=== PATIENT | female | born 1935 | race Caucasian/White ===

== ENCOUNTER 2019-03-29 15:37 | Inpatient (IN) | payer MEDICARE, OTHER ==
[2019-03-29] MEDS ORDERED: Lactated Ringers 1,000 ML IV SCH (16:00)
[2019-03-29] MEDS ORDERED: Acetaminophen 325 MG Tab PO ONE (16:01)
[2019-03-29] MEDS ORDERED: Piperacillin/Tazobactam 4.5 GM in Sodium Chloride 0.9% 100 ML IV ONE (16:02)
[2019-03-29] MEDS ORDERED: Ondansetron 4 MG/2 ML SDV IVPUSH ONE (16:02)
--- NOTE | 2019-03-29 16:05 | EDM.PDOC ---
ED HPI GENERAL MEDICAL PROBLEM - General Chief Complaint: Fever Stated Complaint: MEDICAL Time Seen by Provider: 03/29/19 15:55 Source of Information: Reports: Patient, Family, Provider, RN Notes Reviewed History Limitations: Reports: No Limitations - History of Present Illness INITIAL COMMENTS - FREE TEXT/NARRATIVE: 84-year-old female presents emergency department today complaint of body aches, fever and weakness, she states she started in sick yesterday has progressively gotten worse. Was initially evaluated in clinic and then sent to the emergency department for further evaluation. She does admit to being short of breath is concerned about a urinary tract infection although she diet denies any symptomology, no tick exposure she is aware of, flu shot was given this year influenza AB- in the clinic Generalized Pain Score (Numeric/FACES): 5 - Related Data Allergies Allergy/AdvReac Type Severity Reaction Status Date / Time amoxicillin [From Augmentin] Allergy Nausea Verified 03/29/19 15:53 atorvastatin [From Lipitor] Allergy Muscle Verified 03/29/19 15:53 Aches ciprofloxacin [From Cipro] Allergy Rash Verified 03/29/19 15:53 clavulanic acid Allergy Nausea Verified 03/29/19 15:53 [From Augmentin] diatrizoate sodium Allergy Anaphylactic Verified 03/29/19 15:53 Shock gabapentin Allergy Confusion Verified 03/29/19 15:53 gluten Allergy Diarrhea Verified 03/29/19 15:53 Iodinated Contrast Media Allergy Anaphylactic Verified 03/29/19 15:53 Shock meropenem Allergy Other Verified 03/29/19 15:53 metformin Allergy Confusion Verified 02/26/19 09:39 oats Allergy Diarrhea Verified 03/29/19 15:53 pravastatin Allergy Rash Verified 03/29/19 15:53 ropivacaine Allergy Other Verified 03/29/19 15:53 rosuvastatin [From Crestor] Allergy Hives Verified 03/29/19 15:53 Idzpopr-Yse-Llp Reductase Allergy Muscle Verified 03/29/19 15:53 Inhibitor Aches sulfamethoxazole Allergy Cannot Verified 03/29/19 15:53 [From Bactrim] Remember trimethoprim [From Bactrim] Allergy Cannot Verified 03/29/19 15:53 Remember wheat bran Allergy Diarrhea Verified 03/29/19 15:53 [From Senokot Wheat Bran] Home Meds: Home Meds Aspirin [Halfprin] 81 mg PO DAILY 02/22/19 [History] Cyanocobalamin (Vitamin B-12) [Vitamin B-12] 1,000 mcg PO DAILY 02/22/19 [ History] Isosorbide Mononitrate [Imdur] 30 mg PO DAILY 02/22/19 [History] Lutein 20 mg PO BID 02/22/19 [History] Metoprolol Succinate [Toprol XL] 25 mg PO DAILY 02/22/19 [History] Nitroglycerin [Nitrostat] 0.4 mg SL ASDIRECTED PRN 02/22/19 [History] Pregabalin [Lyrica] 75 mg PO DAILY 02/22/19 [History] Torsemide 10 mg PO BID 02/22/19 [History] Past Medical History Cardiovascular History: Reports: Afib, Heart Failure, Hypertension Neurological History: Reports: Neuropathy, Peripheral ED ROS GENERAL - Review of Systems Review Of Systems: See Below Constitutional: Reports: Fever, Chills, Other (Body aches) HEENT: Reports: No Symptoms Respiratory: Reports: Shortness of Breath Cardiovascular: Reports: No Symptoms GI/Abdominal: Reports: Nausea : Reports: No Symptoms Musculoskeletal: Reports: No Symptoms Skin: Reports: No Symptoms ED EXAM, SEPSIS - Physical Exam Exam: See Below Text/Narrative:: General: Female, ill-appearing but not in distress, alert and oriented x3 HEENT: head is atraumatic normocephalic, eyes pupils equal round reactive to light, sclera clear no conjunctivitis appreciated. Ears tympanic membranes clear and zarate landmarks and light reflex are present bilaterally canals are clear. Nose no septal deviation, nares are clear, no blood present. Mouth mucosa is moist and pink no erythema or exudate noted in soft palate, tongue is midline uvula is midline, dentition is intact. Neck: Supple no thyromegaly no tracheal deviation. Nodes: Cervical nodes subclavicular nodes nontender no palpable lymphadenopathy noted. Lungs: Coarse breath sounds in the bases bilaterally CV: Regular rate and rhythm S1 and S2 appreciated no murmurs rubs or gallops noted. Abdomen: Soft, nontender, no palpable masses or organomegaly appreciated, no distention no guarding bowel sounds are present, . Neuro: GCS 15, Skin: Warm and dry, intact Extremities: No lower extremity edema appreciated, Course - Vital Signs Last Recorded V/S: Last Vital Signs Temp 99.8 F 03/29/19 16:44 Pulse 133 H 03/29/19 16:16 Resp 19 03/29/19 16:20 BP 141/77 H 03/29/19 16:20 Pulse Ox 90 L 03/29/19 16:20 - Orders/Labs/Meds Orders: Active Orders 24 hr Category Date Time Status Vital Signs [RC] Q1H Care 03/29/19 15:59 Active CULTURE BLOOD [BC] Urgent Lab 03/29/19 16:00 Received CULTURE BLOOD [BC] Urgent Lab 03/29/19 16:01 Received CULTURE URINE [RM] Urgent Lab 03/29/19 16:51 Received Lactated Ringers [Ringers, Lactated] 1,000 ml Med 03/29/19 16:00 Active IV ASDIRECTED Lactated Ringers [Ringers, Lactated] 1,000 ml Med 03/29/19 17:08 Active IV BOLUS Blood Culture x2 Reflex Set [OM.PC] Urgent Oth 03/29/19 15:59 Ordered Medication Orders Lactated Ringer's (Ringers, Lactated) 1,000 mls @ 999 mls/hr IV ASDIRECTED LA Last Admin: 03/29/19 16:05 Dose: 999 mls/hr Lactated Ringer's (Ringers, Lactated) 1,000 mls @ 999 mls/hr IV BOLUS ONE Stop: 03/29/19 18:08 Last Admin: 03/29/19 17:11 Dose: 999 mls/hr Labs: Laboratory Tests 03/29/19 03/29/19 03/29/19 Range/Units 15:59 16:14 16:14 WBC 9.7 (4.5-11.0) K/uL RBC 4.58 (3.30-5.50) M/uL Hgb 14.0 (12.0-15.0) g/dL Hct 40.1 (36.0-48.0) % MCV 88 (80-98) fL MCH 31 (27-31) pg MCHC 35 (32-36) % Plt Count 78 L (150-400) K/uL Neut % (Auto) 75 H (36-66) % Lymph % (Auto) 14 L (24-44) % [place] % (Auto) 9 H (2-6) % Eos % (Auto) 2 (2-4) % Baso % (Auto) 0 (0-1) % Sodium 139 L (140-148) mmol/L Potassium 3.7 (3.6-5.2) mmol/L Chloride 105 (100-108) mmol/L Carbon Dioxide 22 (21-32) mmol/L Anion Gap 15.7 H (5.0-14.0) mmol/L BUN 19 H (7-18) mg/dL Creatinine 1.1 H (0.6-1.0) mg/dL Est Cr Clr Drug Dosing 34.05 mL/min Estimated GFR (MDRD) 48 L (>60) Glucose 123 H (74-106) mg/dL Lactic Acid 1.5 (0.4-2.0) mmol/L Calcium 8.6 (8.5-10.1) mg/dL Total Bilirubin 0.5 (0.2-1.0) mg/dL AST 21 (15-37) U/L ALT 11 L (12-78) U/L Alkaline Phosphatase 60 (46-116) U/L Lactate Dehydrogenase (82-234) U/L Troponin I (0.000-0.056) ng/mL C-Reactive Protein 8.29 H (0.0-0.3) mg/dL Total Protein 7.5 (6.4-8.2) g/dL Albumin 2.9 L (3.4-5.0) g/dL Globulin 4.6 H (2.3-3.5) g/dL Albumin/Globulin Ratio 0.6 L (1.2-2.2) Procalcitonin ng/mL Urine Color (YELLOW) Urine Appearance (CLEAR) Urine pH (5.0-8.0) Ur Specific [place] (1.008-1.030) Urine Protein (NEGATIVE) mg/dL Urine Glucose (UA) (NEGATIVE) mg/dL Urine Ketones (NEGATIVE) mg/dL Urine Occult Blood (NEGATIVE) Urine Nitrite (NEGATIVE) Urine Bilirubin (NEGATIVE) Urine Urobilinogen (0.2-1.0) EU/dL Ur Leukocyte Esterase (NEGATIVE) Urine RBC (0-5) Urine WBC (0-5) Ur Epithelial Cells Amorphous Sediment Urine Bacteria Urine Mucus 03/29/19 03/29/19 03/29/19 Range/Units 16:14 16:14 16:26 WBC (4.5-11.0) K/uL RBC (3.30-5.50) M/uL Hgb (12.0-15.0) g/dL Hct (36.0-48.0) % MCV (80-98) fL MCH (27-31) pg MCHC (32-36) % Plt Count (150-400) K/uL Neut % (Auto) (36-66) % Lymph % (Auto) (24-44) % [place] % (Auto) (2-6) % Eos % (Auto) (2-4) % Baso % (Auto) (0-1) % Sodium (140-148) mmol/L Potassium (3.6-5.2) mmol/L Chloride (100-108) mmol/L Carbon Dioxide (21-32) mmol/L Anion Gap (5.0-14.0) mmol/L BUN (7-18) mg/dL Creatinine (0.6-1.0) mg/dL Est Cr Clr Drug Dosing mL/min Estimated GFR (MDRD) (>60) Glucose (74-106) mg/dL Lactic Acid (0.4-2.0) mmol/L Calcium (8.5-10.1) mg/dL Total Bilirubin (0.2-1.0) mg/dL AST (15-37) U/L ALT (12-78) U/L Alkaline Phosphatase (46-116) U/L Lactate Dehydrogenase 162 (82-234) U/L Troponin I < 0.017 (0.000-0.056) ng/mL C-Reactive Protein (0.0-0.3) mg/dL Total Protein (6.4-8.2) g/dL Albumin (3.4-5.0) g/dL Globulin (2.3-3.5) g/dL Albumin/Globulin Ratio (1.2-2.2) Procalcitonin 20.49 H* ng/mL Urine Color Yellow (YELLOW) Urine Appearance Slightly cloudy A (CLEAR) Urine pH 8.0 (5.0-8.0) Ur Specific [place] 1.020 (1.008-1.030) Urine Protein 100 H (NEGATIVE) mg/dL Urine Glucose (UA) Negative (NEGATIVE) mg/dL Urine Ketones Trace H (NEGATIVE) mg/dL Urine Occult Blood Moderate H (NEGATIVE) Urine Nitrite Negative (NEGATIVE) Urine Bilirubin Negative (NEGATIVE) Urine Urobilinogen 0.2 (0.2-1.0) EU/dL Ur Leukocyte Esterase Small H (NEGATIVE) Urine RBC 10-20 H (0-5) Urine WBC 10-20 H (0-5) Ur Epithelial Cells Many Amorphous Sediment Many Urine Bacteria Not seen Urine Mucus Not seen Meds: Medications Generic Name Dose Route Start Last Admin Trade Name Freq PRN Reason Stop Dose Admin Lactated Ringer's 1,000 mls @ 999 mls/hr 03/29/19 16:00 03/29/19 16:05 Ringers, Lactated IV 999 mls/hr ASDIRECTED LA Administration Lactated Ringer's 1,000 mls @ 999 mls/hr 03/29/19 17:08 03/29/19 17:11 Ringers, Lactated IV 03/29/19 18:08 999 mls/hr BOLUS ONE Administration Discontinued Medications Generic Name Dose Route Start Last Admin Trade Name Freq PRN Reason Stop Dose Admin Acetaminophen 650 mg 03/29/19 16:01 03/29/19 16:10 Tylenol PO 03/29/19 16:02 650 mg NOW ONE Administration Piperacillin Sod/Tazobactam 100 mls @ 100 mls/hr 03/29/19 16:02 03/29/19 16: 14 Sod 4.5 gm/ Sodium Chloride IV 03/29/19 17:01 100 mls/hr ONETIME ONE Administration Ondansetron HCl 4 mg 03/29/19 16:02 03/29/19 16:08 Zofran IVPUSH 03/29/19 16:03 4 mg ONETIME ONE Administration Departure - Departure Time of Disposition: 17:18 Disposition: Admitted As Inpatient 68 Condition: Fair Clinical Impression: Sepsis Qualifiers: Sepsis type: sepsis due to unspecified organism Sepsis acute organ dysfunction status: with acute organ dysfunction Severe sepsis acute organ dysfunction type : acute renal failure Acute renal failure type: unspecified Severe sepsis shock status: without septic shock Qualified Code(s): A41.9 - Sepsis, unspecified organism - Discharge Information Referrals: Aliza Fowler MD [Primary Care Provider] - Forms: ED Department Discharge - My Orders Last 24 Hours: My Active Orders 03/29/19 15:59 Vital Signs [RC] Q1H Blood Culture x2 Reflex Set [OM.PC] Urgent 03/29/19 16:00 CULTURE BLOOD [BC] Urgent Lactated Ringers [Ringers, Lactated] 1,000 ml IV ASDIRECTED 03/29/19 16:01 CULTURE BLOOD [BC] Urgent 03/29/19 16:51 CULTURE URINE [RM] Urgent 03/29/19 17:08 Lactated Ringers [Ringers, Lactated] 1,000 ml IV BOLUS - Assessment/Plan Last 24 Hours: My Active Orders 03/29/19 15:59 Vital Signs [RC] Q1H Blood Culture x2 Reflex Set [OM.PC] Urgent 03/29/19 16:00 CULTURE BLOOD [BC] Urgent Lactated Ringers [Ringers, Lactated] 1,000 ml IV ASDIRECTED 03/29/19 16:01 CULTURE BLOOD [BC] Urgent 03/29/19 16:51 CULTURE URINE [RM] Urgent 03/29/19 17:08 Lactated Ringers [Ringers, Lactated] 1,000 ml IV BOLUS Plan: Assessment Acuity = acute Site and laterality = early sepsis Etiology = unknown Manifestations = fever, tachycardia Location of injury = Home Lab values = platelets low at 78 consistent thrombocytopenia creatinine elevated 1.1 consistent acute renal failure stage G IIIa lactic acid normal 1.5 troponin was negative CRP elevated 8.29 and pro-calcitonin limited 20.49 urinalysis reveals RBCs 10-20 consistent hematuria WBCs 1020 consistent pyuria however no bacteria noted cultures pending, influenza A and B were negative, chest x-ray shows no acute process, blood cultures are pending EKG from clinic demonstrates sinus tachycardia Plan Called discussed case with hospitalist on-call at 1700 he kindly agreed to come and evaluate the patient emergency department for admission This note was dictated using [employer] voice recognition software please call with any questions on syntax or grammar.
--- NOTE | 2019-03-29 16:27 | CRLCR ---
Indication: Fever. Technique: A single AP portable view of the chest was obtained. Comparison: None Findings: Heart is normal in size. Cardiac event monitor is identified overlying the left chest. No infiltrate, pleural effusion, or pneumothorax is identified. Impression: No acute cardiopulmonary process. Dictated by Nicolasa Chang MD @ Mar 29 2019 4:25PM Signed by Dr. Nicolasa Chang @ Mar 29 2019 4:25PM
[2019-03-29] MEDS ORDERED: Lactated Ringers 1,000 ML IV ONE (17:08)
--- NOTE | 2019-03-29 18:05 | PCM.HP.2 ---
H&P History of Present Illness - General Date of Service: 03/29/19 Admit Problem/Dx: Admission Diagnosis/Problem Admission Diagnosis/Problem Right lower lobe pneumonia Source of Information: Patient, Provider History Limitations: Reports: No Limitations - History of Present Illness Initial Comments - Free Text/Narative: CC: I'm freezing HPI: Jagjit presents to the emergency room today with shaking chills, myalgias, headache, fatigue and shortness of breath. She was in her usual state of health until Friday morning. Shortly after waking up she noticed that she had shaking chills and was short of breath. She had a mild cough. She's had difficulty with sinus congestion for a couple of weeks. She's not aware of any fevers. She does endorse mild achy pain in the right lower portion of her chest. This gets worse with coughing and bending. Tylenol has helped the pain some. Pain is a little bit worse today than yesterday. Headache is mild generalized. She's had some nausea. She had 2 episodes of diarrhea this morning. She does report some mild generalized abdominal pain. No obvious sick contacts. She reports that her energy at baseline is not very good but it's been worse. Appetite has not been good the past couple of days. She has noticed some palpitations with her atrial fibrillation. Workup in the emergency room revealed rapid atrial fibrillation on the patient monitor. Patient is mildly hypoxic. Laboratory studies fairly unremarkable other than a CRP of more than 8 and a pro-calcitonin of more than 20. Chest x- ray did not show obvious infiltrate but exam consistent with pneumonia in the right lower lung. She'll be admitted for management of right lower lobe pneumonia with sepsis and rapid atrial fibrillation. Generalized Pain Score (Numeric/FACES): 5 - Related Data Allergies/Adverse Reactions: Allergies Allergy/AdvReac Type Severity Reaction Status Date / Time amoxicillin [From Augmentin] Allergy Nausea Verified 03/29/19 15:53 atorvastatin [From Lipitor] Allergy Muscle Verified 03/29/19 15:53 Aches ciprofloxacin [From Cipro] Allergy Rash Verified 03/29/19 15:53 clavulanic acid Allergy Nausea Verified 03/29/19 15:53 [From Augmentin] diatrizoate sodium Allergy Anaphylactic Verified 03/29/19 15:53 Shock gabapentin Allergy Confusion Verified 03/29/19 15:53 gluten Allergy Diarrhea Verified 03/29/19 15:53 Iodinated Contrast Media Allergy Anaphylactic Verified 03/29/19 15:53 Shock meropenem Allergy Other Verified 03/29/19 15:53 metformin Allergy Confusion Verified 02/26/19 09:39 oats Allergy Diarrhea Verified 03/29/19 15:53 pravastatin Allergy Rash Verified 03/29/19 15:53 ropivacaine Allergy Other Verified 03/29/19 15:53 rosuvastatin [From Crestor] Allergy Hives Verified 03/29/19 15:53 Tcxvyli-Pea-Hic Reductase Allergy Muscle Verified 03/29/19 15:53 Inhibitor Aches sulfamethoxazole Allergy Cannot Verified 03/29/19 15:53 [From Bactrim] Remember trimethoprim [From Bactrim] Allergy Cannot Verified 03/29/19 15:53 Remember wheat bran Allergy Diarrhea Verified 03/29/19 15:53 [From Senokot Wheat Bran] Home Medications: Home Meds Aspirin [Halfprin] 81 mg PO DAILY 02/22/19 [History] Cyanocobalamin (Vitamin B-12) [Vitamin B-12] 1,000 mcg PO DAILY 02/22/19 [ History] Isosorbide Mononitrate [Imdur] 30 mg PO DAILY 02/22/19 [History] Lutein 20 mg PO BID 02/22/19 [History] Metoprolol Succinate [Toprol XL] 25 mg PO DAILY 02/22/19 [History] Nitroglycerin [Nitrostat] 0.4 mg SL ASDIRECTED PRN 02/22/19 [History] Pregabalin [Lyrica] 75 mg PO DAILY 02/22/19 [History] Torsemide 10 mg PO BID 02/22/19 [History] Past Medical History HEENT History: Reports: Impaired Vision Cardiovascular History: Reports: Afib, Heart Failure, Hypertension Respiratory History: Reports: Sleep Apnea Other Respiratory History: CPAP Gastrointestinal History: Reports: Other (See Below) Genitourinary History: Reports: UTI, Recurrent 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: Musculoskeletal History: Reports: Back Pain, Chronic Neurological History: Reports: Neuropathy, Peripheral Hematologic History: Reports: B12 Deficiency Oncologic (Cancer) History: Reports: Other (See Below) Other Oncologic History: 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 - Past Surgical History Head Surgeries/Procedures: Reports: None HEENT Surgical History: Reports: Adenoidectomy, Cataract Surgery, LASIK, Tonsillectomy Respiratory Surgical History: Reports: None GI Surgical History: Reports: Appendectomy, Cholecystectomy, Colonoscopy, Other (See Below) Female Surgical History: Reports: Hysterectomy Musculoskeletal Surgical History: Reports: Shoulder Surgery Other Musculoskeletal Surgeries/Procedures:: left Oncologic Surgical History: Reports: None Dermatological Surgical History: Reports: None Social & Family History - Family History Cardiac: Reports: CAD - Tobacco Use Smoking Status *Q: Never Smoker Second Hand Smoke Exposure: No - Caffeine Use Caffeine Use: Reports: Tea - Alcohol Use Alcohol Use History: No - Recreational Drug Use Recreational Drug Use: No H&P Review of Systems - Review of Systems: Review Of Systems: See Below Free Text/Narrative: A complete 12 point review of systems was obtained. Pertinent positives and negatives are noted in the history of present illness. All other systems were reviewed and were negative except as noted. Exam - Exam Exam: See Below - Vital Signs Vital Signs: Last Vital Signs Temp 36.4 C 03/29/19 17:54 Pulse 125 H 03/29/19 17:54 Resp 17 03/29/19 17:54 BP 129/72 03/29/19 17:54 Pulse Ox 93 L 03/29/19 17:54 Weight: 72.575 kg - Exam Quality Assessment: No: Supplemental Oxygen General: Alert, Oriented, Cooperative. No: Mild Distress HEENT: Conjunctiva Clear. No: Mucosa Moist & [place] (dry), Scleral Icterus Neck: Supple, Trachea Midline. No: Lymphadenopathy, Thyromegaly Lungs: Normal Respiratory Effort, Decreased Breath Sounds (right lung base), Crackles (right lung base) Cardiovascular: Irregular Rhythm, Tachycardia. No: Systolic Murmur GI/Abdominal Exam: Normal Bowel Sounds, Soft, No Distention, Tender Extremities: No Pedal Edema. No: Increased Warmth Peripheral Pulses: 1+: Dorsalis Pedis (L), Dorsalis Pedis (R) Skin: Warm, Dry Neuro Extensive - Mental Status: Alert, Oriented x3, Nl Response to Commands Neuro Extensive - Motor, Sensory, Reflexes: No: Dysarthria, Abnormal Motor Psychiatric: Alert, Normal Affect - Patient Data Lab Results Last 24 hrs: Laboratory Results - last 24 hr 03/29/19 03/29/19 03/29/19 Range/Units 15:59 16:14 16:14 WBC 9.7 (4.5-11.0) K/uL RBC 4.58 (3.30-5.50) M/uL Hgb 14.0 (12.0-15.0) g/dL Hct 40.1 (36.0-48.0) % MCV 88 (80-98) fL MCH 31 (27-31) pg MCHC 35 (32-36) % Plt Count 78 L (150-400) K/uL Neut % (Auto) 75 H (36-66) % Lymph % (Auto) 14 L (24-44) % [place] % (Auto) 9 H (2-6) % Eos % (Auto) 2 (2-4) % Baso % (Auto) 0 (0-1) % Sodium 139 L (140-148) mmol/L Potassium 3.7 (3.6-5.2) mmol/L Chloride 105 (100-108) mmol/L Carbon Dioxide 22 (21-32) mmol/L Anion Gap 15.7 H (5.0-14.0) mmol/L BUN 19 H (7-18) mg/dL Creatinine 1.1 H (0.6-1.0) mg/dL Est Cr Clr Drug Dosing 34.05 mL/min Estimated GFR (MDRD) 48 L (>60) Glucose 123 H (74-106) mg/dL Lactic Acid 1.5 (0.4-2.0) mmol/L Calcium 8.6 (8.5-10.1) mg/dL Total Bilirubin 0.5 (0.2-1.0) mg/dL AST 21 (15-37) U/L ALT 11 L (12-78) U/L Alkaline Phosphatase 60 (46-116) U/L Lactate Dehydrogenase (82-234) U/L Troponin I (0.000-0.056) ng/mL C-Reactive Protein 8.29 H (0.0-0.3) mg/dL Total Protein 7.5 (6.4-8.2) g/dL Albumin 2.9 L (3.4-5.0) g/dL Globulin 4.6 H (2.3-3.5) g/dL Albumin/Globulin Ratio 0.6 L (1.2-2.2) Procalcitonin ng/mL Urine Color (YELLOW) Urine Appearance (CLEAR) Urine pH (5.0-8.0) Ur Specific [place] (1.008-1.030) Urine Protein (NEGATIVE) mg/dL Urine Glucose (UA) (NEGATIVE) mg/dL Urine Ketones (NEGATIVE) mg/dL Urine Occult Blood (NEGATIVE) Urine Nitrite (NEGATIVE) Urine Bilirubin (NEGATIVE) Urine Urobilinogen (0.2-1.0) EU/dL Ur Leukocyte Esterase (NEGATIVE) Urine RBC (0-5) Urine WBC (0-5) Ur Epithelial Cells Amorphous Sediment Urine Bacteria Urine Mucus 03/29/19 03/29/19 03/29/19 Range/Units 16:14 16:14 16:26 WBC (4.5-11.0) K/uL RBC (3.30-5.50) M/uL Hgb (12.0-15.0) g/dL Hct (36.0-48.0) % MCV (80-98) fL MCH (27-31) pg MCHC (32-36) % Plt Count (150-400) K/uL Neut % (Auto) (36-66) % Lymph % (Auto) (24-44) % [place] % (Auto) (2-6) % Eos % (Auto) (2-4) % Baso % (Auto) (0-1) % Sodium (140-148) mmol/L Potassium (3.6-5.2) mmol/L Chloride (100-108) mmol/L Carbon Dioxide (21-32) mmol/L Anion Gap (5.0-14.0) mmol/L BUN (7-18) mg/dL Creatinine (0.6-1.0) mg/dL Est Cr Clr Drug Dosing mL/min Estimated GFR (MDRD) (>60) Glucose (74-106) mg/dL Lactic Acid (0.4-2.0) mmol/L Calcium (8.5-10.1) mg/dL Total Bilirubin (0.2-1.0) mg/dL AST (15-37) U/L ALT (12-78) U/L Alkaline Phosphatase (46-116) U/L Lactate Dehydrogenase 162 (82-234) U/L Troponin I < 0.017 (0.000-0.056) ng/mL C-Reactive Protein (0.0-0.3) mg/dL Total Protein (6.4-8.2) g/dL Albumin (3.4-5.0) g/dL Globulin (2.3-3.5) g/dL Albumin/Globulin Ratio (1.2-2.2) Procalcitonin 20.49 H* ng/mL Urine Color Yellow (YELLOW) Urine Appearance Slightly cloudy A (CLEAR) Urine pH 8.0 (5.0-8.0) Ur Specific [place] 1.020 (1.008-1.030) Urine Protein 100 H (NEGATIVE) mg/dL Urine Glucose (UA) Negative (NEGATIVE) mg/dL Urine Ketones Trace H (NEGATIVE) mg/dL Urine Occult Blood Moderate H (NEGATIVE) Urine Nitrite Negative (NEGATIVE) Urine Bilirubin Negative (NEGATIVE) Urine Urobilinogen 0.2 (0.2-1.0) EU/dL Ur Leukocyte Esterase Small H (NEGATIVE) Urine RBC 10-20 H (0-5) Urine WBC 10-20 H (0-5) Ur Epithelial Cells Many Amorphous Sediment Many Urine Bacteria Not seen Urine Mucus Not seen Result Diagrams: 03/29/19 15:59 03/29/19 16:14 Imaging Impressions Last 24 hrs: CXR - images personally reviewed - lungs are clear with no mass, infiltrate or effusion. There is a loop recorder present. Heart size is normal. EKG INTERPRETATION EKG Date: 03/29/19 Rhythm: Other (sinus tachycardia) Rate (Beats/Min): 137 [place]: LAD-Left [place] Deviation P-Wave: Present QRS: Normal ST-T: Depressed Comparison: Change From Previous EKG *Q Meaningful Use (ADM) - VTE Risk Assess *Q Each Risk Factor Represents 1 Point: Obesity ( BMI > 25 kg/m2), Sepsis, Serious lung disease including pneumonia Total Score 1 Point Risk Factors: 3 Each Risk Factor Represents 2 Points: Malignancy (present or previous) Total Score 2 Point Risk Factors: 2 Each Risk Factor Represents 3 Points: Age 75 Years or Greater Total Score 3 Point Risk Factors: 3 Each Risk Factor Represents 5 Points: None Total Score 5 Point Risk Factors: 0 Venous Thromboembolism Risk Factor Score *Q: 8 - Problem List (1) Right lower lobe pneumonia SNOMED Code(s): 596902218 ICD Code: J18.1 - LOBAR PNEUMONIA, UNSPECIFIED ORGANISM Status: Acute Current Visit: Yes Qualifiers: Pneumonia type: due to unspecified organism Qualified Code(s): J18.1 - Lobar pneumonia, unspecified organism (2) Sepsis SNOMED Code(s): 65775221 ICD Code: A41.9 - SEPSIS, UNSPECIFIED ORGANISM Status: Acute Current Visit: Yes Qualifiers: Sepsis type: sepsis due to unspecified organism Sepsis acute organ dysfunction status: with acute organ dysfunction Severe sepsis acute organ dysfunction type: acute respiratory failure Acute respiratory failure type: with hypoxia Severe sepsis shock status: without septic shock Qualified Code (s): A41.9 - Sepsis, unspecified organism; R65.20 - Severe sepsis without septic shock; J96.01 - Acute respiratory failure with hypoxia (3) Atrial fibrillation with rapid ventricular response SNOMED Code(s): 635823691982873 ICD Code: I48.91 - UNSPECIFIED ATRIAL FIBRILLATION Status: Acute Current Visit: Yes (4) CKD (chronic kidney disease), stage III SNOMED Code(s): 561838897 ICD Code: N18.3 - CHRONIC KIDNEY DISEASE, STAGE 3 (MODERATE) Status: Chronic Current Visit: Yes Problem List Initiated/Reviewed/Updated: Yes Orders Last 24hrs: Active Orders 24 hr Category Date Time Status Patient Status Manage Transfer [TRANSFER] Routine ADT 03/29/19 17:50 Ordered Vital Signs [RC] Q1H Care 03/29/19 15:59 Active CULTURE BLOOD [BC] Urgent Lab 03/29/19 16:00 Received CULTURE BLOOD [BC] Urgent Lab 03/29/19 16:01 Received CULTURE URINE [RM] Urgent Lab 03/29/19 16:51 Received Lactated Ringers [Ringers, Lactated] 1,000 ml Med 03/29/19 16:00 Active IV ASDIRECTED Lactated Ringers [Ringers, Lactated] 1,000 ml Med 03/29/19 17:08 Active IV BOLUS Blood Culture x2 Reflex Set [OM.PC] Urgent Oth 03/29/19 15:59 Ordered Resuscitation Status Routine Resus Stat 03/29/19 17:54 Ordered Medication Orders Lactated Ringer's (Ringers, Lactated) 1,000 mls @ 999 mls/hr IV ASDIRECTED LA Last Admin: 03/29/19 16:05 Dose: 999 mls/hr Lactated Ringer's (Ringers, Lactated) 1,000 mls @ 999 mls/hr IV BOLUS ONE Stop: 03/29/19 18:08 Last Admin: 03/29/19 17:11 Dose: 999 mls/hr Assessment/Plan Comment:: ASSESSMENT AND PLAN - Right lower lobe pneumonia with sepsis - Dictated by hypoxic respiratory failure. Symptoms with fatigue, shortness of breath and cough as well as fever. Cultures have been obtained. She did receive a dose of Pip/Tazo in the emergency room. She is very weak and hypoxic and not safe for outpatient management. -Antibiotic coverage with ceftriaxone and azithromycin -Supplement oxygen as needed -Symptomatically management of cough -Symptomatic management of right lower chest pain -Nebulizers as needed -Follow-up cultures Atrial fibrillation with rapid ventricular response - history of paroxysmal atrial fibrillation. Not on long-term anticoagulation. I suspect the pulmonary infection as the cause for the RVR. -Additional fluids to manage sepsis -Continue beta jennifer -Consider additional 25 mg dose of short-acting metoprolol if rapid overnight Stage III chronic kidney disease - She will need close monitoring with sepsis and pneumonia. Maintenance issues - - DVT prophylaxis - enoxaparin - GI prophylaxis - not indicated - Nutrition - consistent carbohydrate diet - Rainey catheter - not indicated CODE STATUS - full code Admission justification - This patient will be admitted for inpatient services and is medically appropriate meeting medical necessity for inpatient admission as outlined in my documentation. I reasonably expect the patient will require inpatient services that span a period time over 2 midnights. I reasonably expect this patient to be discharged or transferred within 96 hours [facility]. Disposition - I would anticipate discharge home after the hospital stay Primary care physician - Dr. Malcolm Walker M.D. - Mortality Measure Prognosis:: Good
[2019-03-29] MEDS ORDERED: Sodium Chloride 0.9% 500 ML IV SCH (18:15)
[2019-03-29] MEDS ORDERED: Ondansetron 4 MG Tab.DIS PO PRN (18:22)
[2019-03-29] MEDS ORDERED: Melatonin 3 MG Tab PO PRN (18:22)
[2019-03-29] MEDS ORDERED: Azithromycin 500 MG in Sodium Chloride 0.9% 250 ML IV ONE (18:22)
[2019-03-29] MEDS ORDERED: Ondansetron 4 MG/2 ML SDV IV PRN (18:22)
[2019-03-29] MEDS ORDERED: Benzonatate 100 MG Cap PO PRN (18:22)
[2019-03-29] MEDS ORDERED: Albuterol 0.083% 2.5 MG/3 ML Neb Soln NEB PRN (18:22)
[2019-03-29] MEDS ORDERED: Magnesium Hydroxide 400 MG/5 ML Susp 30 ML Cup PO PRN (18:22)
[2019-03-29] MEDS ORDERED: guaiFENesin/Dextromethorphan 100-10 MG/5 ML Soln 10 ML Cup PO PRN (18:22)
[2019-03-29] MEDS: cefTRIAXone 2 GM in Sodium Chloride 0.9% 50 ML IV SCH (21:15)
[2019-03-29] MEDS: Lactobacillus Rhamnosus GG (Probiotic) Cap PO SCH (21:19)
[2019-03-29] MEDS: NS + KCl 20mEq/L 1,000 ML IV SCH (21:48)
[2019-03-30] MEDS: NS + KCl 20mEq/L 1,000 ML IV SCH (05:09)
[2019-03-30] MEDS: Pregabalin 75 MG Cap PO SCH (09:14)
[2019-03-30] MEDS: Lactobacillus Rhamnosus GG (Probiotic) Cap PO SCH ×2 (09:19→20:00)
[2019-03-30] MEDS: Cyanocobalamin (Vitamin B12) 1,000 MCG Tab PO SCH (09:19)
[2019-03-30] MEDS: Aspirin 81 MG Tab.EC PO SCH (09:19)
[2019-03-30] MEDS: Enoxaparin 40 MG/0.4 ML Syringe SUBCUT SCH (09:20)
[2019-03-30] MEDS: LUTEIN 20 MG PO SCH ×2 (09:24→20:09)
[2019-03-30] MEDS: Metoprolol Succinate 25 MG Tab.ER PO SCH (09:27)
[2019-03-30] MEDS ORDERED: diphenhydrAMINE 25 MG Cap PO PRN (10:45)
[2019-03-30] MEDS ORDERED: diphenhydrAMINE 50 MG/ML SDV IVPUSH PRN (10:45)
--- NOTE | 2019-03-30 10:50 | PCM.PN ---
- General Info Date of Service: 03/30/19 Subjective Update: No acute events overnight. Patient is no longer hypoxic. Still feels short of breath and weak but a little better today. Not much in the way of a cough. No appetite. She was able to walk down the [place]aga and back with physical therapy this morning. Low-grade fevers overnight. Cultures pending but no growth so far. She converted to normal sinus rhythm around 3 AM and has remained in sinus rhythm since that time. Functional Status: Reports: Pain Controlled, Tolerating Diet - Review of Systems General: Reports: Weakness. Denies: Fever Pulmonary: Reports: Shortness of Breath - Patient Data Vitals - Most Recent: Last Vital Signs Temp 37.5 C 03/30/19 08:03 Pulse 70 03/30/19 09:27 Resp 16 03/30/19 08:03 BP 108/46 L 03/30/19 09:27 Pulse Ox 95 03/30/19 08:03 Weight - Most Recent: 71.214 kg I&O - Last 24 Hours: Intake & Output 03/29/19 03/30/19 03/30/19 22:59 06:59 14:59 Intake Total 850 1207 240 Output Total 150 Balance 850 1207 90 Lab Results Last 24 Hours: Laboratory Results - last 24 hr 03/29/19 03/29/19 03/29/19 Range/Units 15:59 16:14 16:14 WBC 9.7 (4.5-11.0) K/uL RBC 4.58 (3.30-5.50) M/uL Hgb 14.0 (12.0-15.0) g/dL Hct 40.1 (36.0-48.0) % MCV 88 (80-98) fL MCH 31 (27-31) pg MCHC 35 (32-36) % Plt Count 78 L (150-400) K/uL Neut % (Auto) 75 H (36-66) % Lymph % (Auto) 14 L (24-44) % [place] % (Auto) 9 H (2-6) % Eos % (Auto) 2 (2-4) % Baso % (Auto) 0 (0-1) % Sodium 139 L (140-148) mmol/L Potassium 3.7 (3.6-5.2) mmol/L Chloride 105 (100-108) mmol/L Carbon Dioxide 22 (21-32) mmol/L Anion Gap 15.7 H (5.0-14.0) mmol/L BUN 19 H (7-18) mg/dL Creatinine 1.1 H (0.6-1.0) mg/dL Est Cr Clr Drug Dosing 34.05 mL/min Estimated GFR (MDRD) 48 L (>60) Glucose 123 H (74-106) mg/dL Lactic Acid 1.5 (0.4-2.0) mmol/L Calcium 8.6 (8.5-10.1) mg/dL Magnesium (1.8-2.4) mg/dL Total Bilirubin 0.5 (0.2-1.0) mg/dL AST 21 (15-37) U/L ALT 11 L (12-78) U/L Alkaline Phosphatase 60 (46-116) U/L Lactate Dehydrogenase (82-234) U/L Troponin I (0.000-0.056) ng/mL C-Reactive Protein 8.29 H (0.0-0.3) mg/dL Total Protein 7.5 (6.4-8.2) g/dL Albumin 2.9 L (3.4-5.0) g/dL Globulin 4.6 H (2.3-3.5) g/dL Albumin/Globulin Ratio 0.6 L (1.2-2.2) Procalcitonin ng/mL Urine Color (YELLOW) Urine Appearance (CLEAR) Urine pH (5.0-8.0) Ur Specific [place] (1.008-1.030) Urine Protein (NEGATIVE) mg/dL Urine Glucose (UA) (NEGATIVE) mg/dL Urine Ketones (NEGATIVE) mg/dL Urine Occult Blood (NEGATIVE) Urine Nitrite (NEGATIVE) Urine Bilirubin (NEGATIVE) Urine Urobilinogen (0.2-1.0) EU/dL Ur Leukocyte Esterase (NEGATIVE) Urine RBC (0-5) Urine WBC (0-5) Ur Epithelial Cells Amorphous Sediment Urine Bacteria Urine Mucus 03/29/19 03/29/19 03/29/19 Range/Units 16:14 16:14 16:26 WBC (4.5-11.0) K/uL RBC (3.30-5.50) M/uL Hgb (12.0-15.0) g/dL Hct (36.0-48.0) % MCV (80-98) fL MCH (27-31) pg MCHC (32-36) % Plt Count (150-400) K/uL Neut % (Auto) (36-66) % Lymph % (Auto) (24-44) % [place] % (Auto) (2-6) % Eos % (Auto) (2-4) % Baso % (Auto) (0-1) % Sodium (140-148) mmol/L Potassium (3.6-5.2) mmol/L Chloride (100-108) mmol/L Carbon Dioxide (21-32) mmol/L Anion Gap (5.0-14.0) mmol/L BUN (7-18) mg/dL Creatinine (0.6-1.0) mg/dL Est Cr Clr Drug Dosing mL/min Estimated GFR (MDRD) (>60) Glucose (74-106) mg/dL Lactic Acid (0.4-2.0) mmol/L Calcium (8.5-10.1) mg/dL Magnesium (1.8-2.4) mg/dL Total Bilirubin (0.2-1.0) mg/dL AST (15-37) U/L ALT (12-78) U/L Alkaline Phosphatase (46-116) U/L Lactate Dehydrogenase 162 (82-234) U/L Troponin I < 0.017 (0.000-0.056) ng/mL C-Reactive Protein (0.0-0.3) mg/dL Total Protein (6.4-8.2) g/dL Albumin (3.4-5.0) g/dL Globulin (2.3-3.5) g/dL Albumin/Globulin Ratio (1.2-2.2) Procalcitonin 20.49 H* ng/mL Urine Color Yellow (YELLOW) Urine Appearance Slightly cloudy A (CLEAR) Urine pH 8.0 (5.0-8.0) Ur Specific [place] 1.020 (1.008-1.030) Urine Protein 100 H (NEGATIVE) mg/dL Urine Glucose (UA) Negative (NEGATIVE) mg/dL Urine Ketones Trace H (NEGATIVE) mg/dL Urine Occult Blood Moderate H (NEGATIVE) Urine Nitrite Negative (NEGATIVE) Urine Bilirubin Negative (NEGATIVE) Urine Urobilinogen 0.2 (0.2-1.0) EU/dL Ur Leukocyte Esterase Small H (NEGATIVE) Urine RBC 10-20 H (0-5) Urine WBC 10-20 H (0-5) Ur Epithelial Cells Many Amorphous Sediment Many Urine Bacteria Not seen Urine Mucus Not seen 03/30/19 03/30/19 Range/Units 05:40 05:40 WBC 7.7 (4.5-11.0) K/uL RBC 3.83 (3.30-5.50) M/uL Hgb 11.2 L D (12.0-15.0) g/dL Hct 35.0 L (36.0-48.0) % MCV 91 (80-98) fL MCH 29 (27-31) pg MCHC 32 (32-36) % Plt Count 145 L (150-400) K/uL Neut % (Auto) (36-66) % Lymph % (Auto) (24-44) % [place] % (Auto) (2-6) % Eos % (Auto) (2-4) % Baso % (Auto) (0-1) % Sodium 141 (140-148) mmol/L Potassium 4.1 (3.6-5.2) mmol/L Chloride 109 H (100-108) mmol/L Carbon Dioxide 23 (21-32) mmol/L Anion Gap 13.1 (5.0-14.0) mmol/L BUN 13 (7-18) mg/dL Creatinine 1.0 (0.6-1.0) mg/dL Est Cr Clr Drug Dosing 37.45 mL/min Estimated GFR (MDRD) 53 L (>60) Glucose 136 H (74-106) mg/dL Lactic Acid (0.4-2.0) mmol/L Calcium 8.1 L (8.5-10.1) mg/dL Magnesium 1.9 (1.8-2.4) mg/dL Total Bilirubin (0.2-1.0) mg/dL AST (15-37) U/L ALT (12-78) U/L Alkaline Phosphatase (46-116) U/L Lactate Dehydrogenase (82-234) U/L Troponin I (0.000-0.056) ng/mL C-Reactive Protein (0.0-0.3) mg/dL Total Protein (6.4-8.2) g/dL Albumin (3.4-5.0) g/dL Globulin (2.3-3.5) g/dL Albumin/Globulin Ratio (1.2-2.2) Procalcitonin ng/mL Urine Color (YELLOW) Urine Appearance (CLEAR) Urine pH (5.0-8.0) Ur Specific [place] (1.008-1.030) Urine Protein (NEGATIVE) mg/dL Urine Glucose (UA) (NEGATIVE) mg/dL Urine Ketones (NEGATIVE) mg/dL Urine Occult Blood (NEGATIVE) Urine Nitrite (NEGATIVE) Urine Bilirubin (NEGATIVE) Urine Urobilinogen (0.2-1.0) EU/dL Ur Leukocyte Esterase (NEGATIVE) Urine RBC (0-5) Urine WBC (0-5) Ur Epithelial Cells Amorphous Sediment Urine Bacteria Urine Mucus Med Orders - Current: Current Medications Acetaminophen (Tylenol) 650 mg PO Q4H PRN PRN Reason: Pain (Mild 1-3)/fever Albuterol (Proventil Neb Soln) 2.5 mg NEB Q4H PRN PRN Reason: Shortness Of Breath/wheezing Aspirin (Halfprin) 81 mg PO DAILY [facility] Last Admin: 03/30/19 09:19 Dose: 81 mg Azithromycin (Zithromax) 500 mg PO Q24H [facility] Benzonatate (Tessalon Perles) 100 mg PO TID PRN PRN Reason: Cough Cyanocobalamin (Vitamin B12) 1,000 mcg PO DAILY [facility] Last Admin: 03/30/19 09:19 Dose: 1,000 mcg Enoxaparin Sodium (Lovenox) 40 mg SUBCUT DAILY [facility] Last Admin: 03/30/19 09:20 Dose: 40 mg Guaifenesin/Dextromethorphan (Robitussin Dm) 10 ml PO Q4H PRN PRN Reason: Cough Ceftriaxone Sodium 2 gm/ (Sodium Chloride) 50 mls @ 100 mls/hr IV Q24H [facility] Last Admin: 03/29/19 21:15 Dose: 100 mls/hr Lactobacillus Rhamnosus (Culturelle) 1 cap PO BID [facility] Last Admin: 03/30/19 09:19 Dose: 1 cap Magnesium Hydroxide (Milk Of Magnesia) 30 ml PO Q12H PRN PRN Reason: Constipation Melatonin (Melatonin) 9 mg PO BEDTIME PRN PRN Reason: Sleep Metoprolol Succinate (Toprol Xl) 25 mg PO DAILY [facility] Last Admin: 03/30/19 09:27 Dose: 25 mg Lutein 20 Mg Ptom* (*) 20 mg PO BID [facility] Last Admin: 03/30/19 09:24 Dose: Not Given Ondansetron HCl (Zofran Odt) 4 mg PO Q6H PRN PRN Reason: Nausea able to take PO Last Admin: 03/29/19 21:58 Dose: 4 mg Ondansetron HCl (Zofran) 4 mg IV Q6H PRN PRN Reason: Nausea/Vomiting Pregabalin (Lyrica) 75 mg PO DAILY [facility] Last Admin: 03/30/19 09:14 Dose: 75 mg Senna/Docusate Sodium (Senna Plus) 1 tab PO BID PRN PRN Reason: Constipation Discontinued Medications Acetaminophen (Tylenol) 650 mg PO NOW ONE Stop: 03/29/19 16:02 Last Admin: 03/29/19 16:10 Dose: 650 mg Lactated Ringer's (Ringers, Lactated) 1,000 mls @ [facility] Last Admin: 03/29/19 16:05 Dose: 999 mls/hr Piperacillin Sod/Tazobactam (Sod 4.5 gm/ Sodium Chloride) 100 mls @ 100 mls/hr IV ONETIME ONE Stop: 03/29/19 17:01 Last Admin: 03/29/19 16:14 Dose: 100 mls/hr Lactated Ringer's (Ringers, Lactated) 1,000 mls @ 999 mls/hr IV BOLUS ONE Stop: 03/29/19 18:08 Last Admin: 03/29/19 17:11 Dose: 999 mls/hr Potassium Chloride/Sodium Chloride (Normal Saline With 20 Meq Kcl) 1,000 mls @ 125 [facility] Last Admin: 03/30/19 05:09 Dose: 125 mls/hr Sodium Chloride (Normal Saline) 500 mls @ 500 [facility] Stop: 03/29/19 19:16 Last Admin: 03/29/19 18:39 Dose: 500 mls/hr Azithromycin 500 mg/ Sodium (Chloride) 250 mls @ 250 mls/hr IV ONETIME ONE Stop: 03/29/19 19:21 Last Admin: 03/29/19 18:40 Dose: 250 mls/hr Ondansetron HCl (Zofran) 4 mg IVPUSH ONETIME ONE Stop: 03/29/19 16:03 Last Admin: 03/29/19 16:08 Dose: 4 mg - Exam Quality Assessment: No: Supplemental Oxygen General: Alert, Oriented, Cooperative, No Acute Distress Lungs: Normal Respiratory Effort, Crackles (few right lung base) Cardiovascular: Regular Rate, Regular Rhythm GI/Abdominal Exam: Soft, Non-Tender, No Distention Extremities: No Pedal Edema. No: Increased Warmth Skin: Warm, Dry Psy/Mental Status: Alert, Normal Affect - Problem List & Annotations (1) Right lower lobe pneumonia SNOMED Code(s): 812086739 Code(s): J18.1 - LOBAR PNEUMONIA, UNSPECIFIED ORGANISM Status: Acute Current Visit: Yes Qualifiers: Pneumonia type: due to unspecified organism Qualified Code(s): J18.1 - Lobar pneumonia, unspecified organism (2) Sepsis SNOMED Code(s): 61427928 Code(s): A41.9 - SEPSIS, UNSPECIFIED ORGANISM Status: Acute Current Visit : Yes Qualifiers: Sepsis type: sepsis due to unspecified organism Sepsis acute organ dysfunction status: with acute organ dysfunction Severe sepsis acute organ dysfunction type: acute respiratory failure Acute respiratory failure type: with hypoxia Severe sepsis shock status: without septic shock Qualified Code (s): A41.9 - Sepsis, unspecified organism; R65.20 - Severe sepsis without septic shock; J96.01 - Acute respiratory failure with hypoxia (3) Atrial fibrillation with rapid ventricular response SNOMED Code(s): 543035104588720 Code(s): I48.91 - UNSPECIFIED ATRIAL FIBRILLATION Status: Acute Current Visit: Yes (4) CKD (chronic kidney disease), stage III SNOMED Code(s): 731458241 Code(s): N18.3 - CHRONIC KIDNEY DISEASE, STAGE 3 (MODERATE) Status: Chronic Current Visit: Yes - Problem List Review Problem List Initiated/Reviewed/Updated: Yes - My Orders Last 24 Hours: My Active Orders 03/29/19 17:54 Resuscitation Status Routine 03/29/19 18:00 cefTRIAXone [Rocephin] 2 gm Sodium Chloride 0.9% [Normal Saline] 50 ml IV Q24H 03/29/19 18:22 Patient Status [ADT] Routine Intake and Output [RC] QSHIFT Notify Provider Vital Signs [RC] ASDIRECTED Oxygen Therapy [RC] PRN RT Aerosol Therapy [RC] ASDIRECTED Up With Assistance [RC] ASDIRECTED VTE/DVT Education [RC] Per Unit Routine Vital Signs [RC] Q4H Acetaminophen [Tylenol] 650 mg PO Q4H PRN Albuterol [Proventil Neb Soln] 2.5 mg NEB Q4H PRN Benzonatate [Tessalon Perles] 100 mg PO TID PRN Dextromethorphan/guaiFENesin [Robitussin DM] 10 ml PO Q4H PRN Docusate Sodium/Sennosides [Senna Plus] 1 tab PO BID PRN Magnesium Hydroxide [Milk of Magnesia] 30 ml PO Q12H PRN Melatonin 9 mg PO BEDTIME PRN Ondansetron [Zofran ODT] 4 mg PO Q6H PRN Ondansetron [Zofran] 4 mg IV Q6H PRN 03/29/19 21:00 Lactobacillus Rhamnosus GG [Culturelle] 1 cap PO BID 03/29/19 Dinner Consistent Carbohydrate Diet [DIET] 03/30/19 07:00 PT Evaluation and Treatment [CONS] Routine 03/30/19 09:00 Aspirin [Halfprin] 81 mg PO DAILY Cyanocobalamin (Vitamin B12) [Vitamin B12] 1,000 mcg PO DAILY Enoxaparin [Lovenox] 40 mg SUBCUT DAILY Lutein [Lutein] 20 mg PO BID Metoprolol Succinate [Toprol XL] 25 mg PO DAILY Pregabalin [Lyrica] 75 mg PO DAILY 03/30/19 10:45 diphenhydrAMINE [Benadryl] 25 mg IVPUSH Q4H PRN diphenhydrAMINE [Benadryl] 25 mg PO Q4H PRN Convert IV to Saline Lock [OM.PC] Routine 03/30/19 10:49 Discontinue Telemetry Monitoring [Cardiac Monitoring Discontinue] [RC] Click to Edit 03/30/19 18:00 Azithromycin [Zithromax] 500 mg PO Q24H 03/31/19 05:00 BASIC METABOLIC PANEL,BMP [CHEM] Timed CBC W/O DIFF,HEMOGRAM [HEME] Timed (1) - Plan Plan:: ASSESSMENT AND PLAN - Right lower lobe pneumonia with sepsis - sepsis has resolved. She has not required supplemental oxygen overnight. Very weak but otherwise clinically seems to be doing well. Still having some low-grade fevers. -Antibiotic coverage with ceftriaxone and azithromycin -Supplement oxygen as needed -Symptomatically management of cough -Symptomatic management of right lower chest pain -Nebulizers as needed -Follow-up cultures Atrial fibrillation with rapid ventricular response - back in sinus rhythm at this time. Vital signs otherwise stable. -Continue beta jennifer -Discontinue telemetry Stage III chronic kidney disease - renal function stable so far Maintenance issues - - DVT prophylaxis - enoxaparin - GI prophylaxis - not indicated - Nutrition - gluten-free Disposition - I would anticipate discharge home after the hospital stay Oscar Walker M.D.
[2019-03-30] MEDS: Acetaminophen 325 MG Tab PO PRN (15:57)
[2019-03-30] MEDS: cefTRIAXone 2 GM in Sodium Chloride 0.9% 50 ML IV SCH (17:43)
[2019-03-30] MEDS ORDERED: Azithromycin 250 MG Tab PO SCH (18:00)
[2019-03-31] MEDS: Acetaminophen 325 MG Tab PO PRN ×2 (03:00→16:52)
--- NOTE | 2019-03-31 08:53 | CRLCR ---
INDICATION: Fever. Shortness of breath. TECHNIQUE: PA and lateral chest x-ray. COMPARISON: Chest x-ray 03/29/2019. FINDINGS: Small bilateral pleural effusions are more apparent. Mild fine nodular interstitial infiltrate or prominence in the lungs new. Findings could be related to pulmonary edema/CHF, infectious/inflammatory etiology, or combination of both etiologies. Opaque density projected in the left chest stable. Heart size is mildly enlarged and stable. Mild platelike atelectasis and scarring in the anterior mid to lower chest on lateral view. Patchy denser opacity in the right lung base associated with the pleural effusion could be related atelectasis or denser infiltrate. Minimal fluid tracking along the fissure in right mid lung. Remainder negative. Dictated by Carlos Bentley MD @ Mar 31 2019 8:49AM Signed by Dr. Carlos Bentley @ Mar 31 2019 8:52AM
[2019-03-31] MEDS ORDERED: Doxycycline 100 MG in Sodium Chloride 0.9% 100 ML IV SCH (09:00)
[2019-03-31] MEDS: Metoprolol Succinate 25 MG Tab.ER PO SCH (09:10)
[2019-03-31] MEDS: Lactobacillus Rhamnosus GG (Probiotic) Cap PO SCH ×2 (09:11→20:04)
[2019-03-31] MEDS: Cyanocobalamin (Vitamin B12) 1,000 MCG Tab PO SCH (09:11)
[2019-03-31] MEDS: Aspirin 81 MG Tab.EC PO SCH (09:12)
[2019-03-31] MEDS: Enoxaparin 40 MG/0.4 ML Syringe SUBCUT SCH (09:12)
[2019-03-31] MEDS: LUTEIN 20 MG PO SCH ×2 (09:13→20:04)
[2019-03-31] MEDS: Pregabalin 75 MG Cap PO SCH (09:24)
--- NOTE | 2019-03-31 11:41 | PCM.PN ---
- General Info Date of Service: 03/31/19 Subjective Update: overnight the patient had a fever greater than 102. She did not sleep well. still feels weak and tired. Appetite was better last night but then she had an episode of diarrhea. Not much of an appetite today. Feels more weak and fatigued today than she did yesterday. No complaints of belly pain. Cultures are still negative. Functional Status: Reports: Pain Controlled, Tolerating Diet - Review of Systems General: Reports: Fever, Weakness, Fatigue - Patient Data Vitals - Most Recent: Last Vital Signs Temp 37.1 C 03/31/19 11:17 Pulse 95 03/31/19 11:17 Resp 18 03/31/19 11:17 BP 121/82 03/31/19 11:17 Pulse Ox 97 03/31/19 11:17 Weight - Most Recent: 71.214 kg I&O - Last 24 Hours: Intake & Output 03/30/19 03/31/19 03/31/19 22:59 06:59 14:59 Intake Total 1050 580 Output Total 200 Balance 1050 380 Lab Results Last 24 Hours: Laboratory Results - last 24 hr 03/31/19 03/31/19 Range/Units 03:40 03:40 WBC 7.7 (4.5-11.0) K/uL RBC 3.30 (3.30-5.50) M/uL Hgb 10.0 L (12.0-15.0) g/dL Hct 29.8 L (36.0-48.0) % MCV 90 (80-98) fL MCH 30 (27-31) pg MCHC 34 (32-36) % Plt Count 116 L (150-400) K/uL Sodium 138 L (140-148) mmol/L Potassium 3.9 (3.6-5.2) mmol/L Chloride 108 (100-108) mmol/L Carbon Dioxide 22 (21-32) mmol/L Anion Gap 11.9 (5.0-14.0) mmol/L BUN 17 (7-18) mg/dL Creatinine 1.2 H (0.6-1.0) mg/dL Est Cr Clr Drug Dosing 31.21 mL/min Estimated GFR (MDRD) 43 L (>60) Glucose 135 H (74-106) mg/dL Calcium 8.1 L (8.5-10.1) mg/dL Siva Results Last 24 Hours: Microbiology 03/29/19 16:51 Urine Culture - Preliminary Urine, Clean Catch MIXED POSITIVE CHU DAY 1 03/29/19 16:01 Aerobic Blood Culture - Preliminary Blood - Arm, Right NO GROWTH AFTER 1 DAY Anaerobic Blood Culture - Preliminary NO GROWTH AFTER 1 DAY 03/29/19 16:00 Aerobic Blood Culture - Preliminary Blood - Venous - Iv Start NO GROWTH AFTER 1 DAY Anaerobic Blood Culture - Preliminary NO GROWTH AFTER 1 DAY Med Orders - Current: Current Medications Acetaminophen (Tylenol) 650 mg PO Q4H PRN PRN Reason: Pain (Mild 1-3)/fever Last Admin: 03/31/19 03:00 Dose: 650 mg Albuterol (Proventil Neb Soln) 2.5 mg NEB Q4H PRN PRN Reason: Shortness Of Breath/wheezing Aspirin (Halfprin) 81 mg PO DAILY [facility] Last Admin: 03/31/19 09:12 Dose: 81 mg Benzonatate (Tessalon Perles) 100 mg PO TID PRN PRN Reason: Cough Cyanocobalamin (Vitamin B12) 1,000 mcg PO DAILY [facility] Last Admin: 03/31/19 09:11 Dose: 1,000 mcg Diphenhydramine HCl (Benadryl) 25 mg IVPUSH Q4H PRN PRN Reason: moderate or severe itching Diphenhydramine HCl (Benadryl) 25 mg PO Q4H PRN PRN Reason: mild itching Doxycycline Hyclate (Vibramycin) 100 mg PO BID [facility] Enoxaparin Sodium (Lovenox) 40 mg SUBCUT DAILY [facility] Last Admin: 03/31/19 09:12 Dose: 40 mg Guaifenesin/Dextromethorphan (Robitussin Dm) 10 ml PO Q4H PRN PRN Reason: Cough Ceftriaxone Sodium 2 gm/ (Sodium Chloride) 50 mls @ 100 mls/hr IV Q24H [facility] Last Admin: 03/30/19 17:43 Dose: 100 mls/hr Lactobacillus Rhamnosus (Culturelle) 1 cap PO BID [facility] Last Admin: 03/31/19 09:11 Dose: 1 cap Magnesium Hydroxide (Milk Of Magnesia) 30 ml PO Q12H PRN PRN Reason: Constipation Melatonin (Melatonin) 9 mg PO BEDTIME PRN PRN Reason: Sleep Metoprolol Succinate (Toprol Xl) 25 mg PO DAILY [facility] Last Admin: 03/31/19 09:10 Dose: 25 mg Lutein 20 Mg Ptom* (*) 20 mg PO BID [facility] Last Admin: 03/31/19 09:13 Dose: Not Given Ondansetron HCl (Zofran Odt) 4 mg PO Q6H PRN PRN Reason: Nausea able to take PO Last Admin: 03/29/19 21:58 Dose: 4 mg Ondansetron HCl (Zofran) 4 mg IV Q6H PRN PRN Reason: Nausea/Vomiting Pregabalin (Lyrica) 75 mg PO DAILY [facility] Last Admin: 03/31/19 09:24 Dose: 75 mg Senna/Docusate Sodium (Senna Plus) 1 tab PO BID PRN PRN Reason: Constipation Discontinued Medications Acetaminophen (Tylenol) 650 mg PO NOW ONE Stop: 03/29/19 16:02 Last Admin: 03/29/19 16:10 Dose: 650 mg Azithromycin (Zithromax) 500 mg PO Q24H [facility] Last Admin: 03/30/19 17:43 Dose: 500 mg Lactated Ringer's (Ringers, Lactated) 1,000 mls @ 999 mls/hr IV ASDIRECTED [facility] Last Admin: 03/29/19 16:05 Dose: 999 mls/hr Piperacillin Sod/Tazobactam (Sod 4.5 gm/ Sodium Chloride) 100 mls @ 100 mls/hr IV ONETIME ONE Stop: 03/29/19 17:01 Last Admin: 03/29/19 16:14 Dose: 100 mls/hr Lactated Ringer's (Ringers, Lactated) 1,000 mls @ 999 mls/hr IV BOLUS ONE Stop: 03/29/19 18:08 Last Admin: 03/29/19 17:11 Dose: 999 mls/hr Potassium Chloride/Sodium Chloride (Normal Saline With 20 Meq Kcl) 1,000 mls @ 125 mls/hr IV ASDIRECTED [facility] Last Admin: 03/30/19 05:09 Dose: 125 mls/hr Sodium Chloride (Normal Saline) 500 mls @ 500 mls/hr IV ASDIRECTED [facility] Stop: 03/29/19 19:16 Last Admin: 03/29/19 18:39 Dose: 500 mls/hr Azithromycin 500 mg/ Sodium (Chloride) 250 mls @ 250 mls/hr IV ONETIME ONE Stop: 03/29/19 19:21 Last Admin: 03/29/19 18:40 Dose: 250 mls/hr Doxycycline Hyclate 100 mg/ (Sodium Chloride) 100 mls @ 100 mls/hr IV Q12H [facility] Last Admin: 03/31/19 11:04 Dose: 100 mls/hr Ondansetron HCl (Zofran) 4 mg IVPUSH ONETIME ONE Stop: 03/29/19 16:03 Last Admin: 03/29/19 16:08 Dose: 4 mg - Exam Quality Assessment: No: Supplemental Oxygen General: Alert, Oriented, Cooperative, No Acute Distress Lungs: Normal Respiratory Effort, Crackles (mild right lung base) Cardiovascular: Regular Rate, Regular Rhythm GI/Abdominal Exam: Soft, No Distention Extremities: No Pedal Edema. No: Increased Warmth Skin: Warm, Dry Psy/Mental Status: Alert, Normal Affect - Problem List & Annotations (1) Right lower lobe pneumonia SNOMED Code(s): 902655776 Code(s): J18.1 - LOBAR PNEUMONIA, UNSPECIFIED ORGANISM Status: Acute Current Visit: Yes Qualifiers: Pneumonia type: due to unspecified organism Qualified Code(s): J18.1 - Lobar pneumonia, unspecified organism (2) Sepsis SNOMED Code(s): 99490951 Code(s): A41.9 - SEPSIS, UNSPECIFIED ORGANISM Status: Acute Current Visit : Yes Qualifiers: Sepsis type: sepsis due to unspecified organism Sepsis acute organ dysfunction status: with acute organ dysfunction Severe sepsis acute organ dysfunction type: acute respiratory failure Acute respiratory failure type: with hypoxia Severe sepsis shock status: without septic shock Qualified Code (s): A41.9 - Sepsis, unspecified organism; R65.20 - Severe sepsis without septic shock; J96.01 - Acute respiratory failure with hypoxia (3) Atrial fibrillation with rapid ventricular response SNOMED Code(s): 338940522139569 Code(s): I48.91 - UNSPECIFIED ATRIAL FIBRILLATION Status: Acute Current Visit: Yes (4) CKD (chronic kidney disease), stage III SNOMED Code(s): 933286261 Code(s): N18.3 - CHRONIC KIDNEY DISEASE, STAGE 3 (MODERATE) Status: Chronic Current Visit: Yes - Problem List Review Problem List Initiated/Reviewed/Updated: Yes - My Orders Last 24 Hours: My Active Orders 03/30/19 10:45 diphenhydrAMINE [Benadryl] 25 mg IVPUSH Q4H PRN diphenhydrAMINE [Benadryl] 25 mg PO Q4H PRN Convert IV to Saline Lock [OM.PC] Routine 03/30/19 Lunch Gluten Free Diet [DIET] 03/31/19 03:19 Blood Culture x2 Reflex Set [OM.PC] Urgent 03/31/19 03:35 CULTURE BLOOD [BC] Urgent 03/31/19 03:40 CULTURE BLOOD [BC] Urgent 03/31/19 21:00 Doxycycline [Vibramycin] 100 mg PO BID 04/01/19 05:00 BASIC METABOLIC PANEL,BMP [CHEM] Timed CBC W/O DIFF,HEMOGRAM [HEME] Timed (1) - Plan Plan:: ASSESSMENT AND PLAN - Right lower lobe pneumonia with sepsis - sepsis has resolved. not hypoxic but she did have a large fever again last night. Repeat chest x-ray this morning showed faint bilateral lower lung reticular opacities as well as the right lower lung pneumonia. -Antibiotic coverage with ceftriaxone and add doxycycline - discontinue his azithromycin -Supplement oxygen as needed -Symptomatically management of cough -Symptomatic management of right lower chest pain -Nebulizers as needed -Follow-up cultures Atrial fibrillation with rapid ventricular response - back in sinus rhythm at this time. Vital signs otherwise stable. -Continue beta jennifer Stage III chronic kidney disease - renal function stable so far Maintenance issues - - DVT prophylaxis - enoxaparin - GI prophylaxis - not indicated - Nutrition - gluten-free Disposition - I would anticipate discharge home after the hospital stay Oscar Walker M.D.
[2019-03-31] MEDS: cefTRIAXone 2 GM in Sodium Chloride 0.9% 50 ML IV SCH ×2 (17:48→18:20)
[2019-03-31] MEDS: Cefdinir 300 MG Cap PO SCH ×2 (20:03→20:04)
[2019-03-31] MEDS: Doxycycline 100 MG Cap PO SCH (20:04)
[2019-04-01] MEDS: LUTEIN 20 MG PO SCH (08:28)
[2019-04-01] MEDS: Aspirin 81 MG Tab.EC PO SCH (08:32)
[2019-04-01] MEDS: Cefdinir 300 MG Cap PO SCH (08:32)
[2019-04-01] MEDS: Lactobacillus Rhamnosus GG (Probiotic) Cap PO SCH (08:32)
[2019-04-01] MEDS: Cyanocobalamin (Vitamin B12) 1,000 MCG Tab PO SCH (08:33)
[2019-04-01] MEDS: Metoprolol Succinate 25 MG Tab.ER PO SCH (08:33)
[2019-04-01] MEDS: Doxycycline 100 MG Cap PO SCH (08:33)
[2019-04-01] MEDS: Pregabalin 75 MG Cap PO SCH (08:34)
[2019-04-01] MEDS: Enoxaparin 40 MG/0.4 ML Syringe SUBCUT SCH (08:35)
--- NOTE | 2019-04-01 09:40 | PCM.DCSUM1 ---
Discharge Summary - Hospital Course Brief History: 84-year-old female with history of paroxysmal atrial fibrillation and stage III chronic kidney disease who presented with shortness of breath and weakness. She was admitted for management of a right lower lobe pneumonia with sepsis and atrial fibrillation with rapid ventricular response. Diagnosis: Stroke: No - Discharge Data Discharge Date: 04/01/19 Discharge Disposition: Home, Self-Care 01 Condition: Good - Referral to Home Health Primary Care Physician: Aliza Fowler MD - Discharge Diagnosis/Problem(s) (1) Right lower lobe pneumonia SNOMED Code(s): 363230616 ICD Code: J18.1 - LOBAR PNEUMONIA, UNSPECIFIED ORGANISM Status: Acute Current Visit: Yes Qualifiers: Pneumonia type: due to unspecified organism Qualified Code(s): J18.1 - Lobar pneumonia, unspecified organism (2) Sepsis SNOMED Code(s): 61508390 ICD Code: A41.9 - SEPSIS, UNSPECIFIED ORGANISM Status: Acute Current Visit: Yes Qualifiers: Sepsis type: sepsis due to unspecified organism Sepsis acute organ dysfunction status: with acute organ dysfunction Severe sepsis acute organ dysfunction type: acute respiratory failure Acute respiratory failure type: with hypoxia Severe sepsis shock status: without septic shock Qualified Code (s): A41.9 - Sepsis, unspecified organism; R65.20 - Severe sepsis without septic shock; J96.01 - Acute respiratory failure with hypoxia (3) Atrial fibrillation with rapid ventricular response SNOMED Code(s): 662395428880296 ICD Code: I48.91 - UNSPECIFIED ATRIAL FIBRILLATION Status: Acute Current Visit: Yes (4) CKD (chronic kidney disease), stage III SNOMED Code(s): 285495138 ICD Code: N18.3 - CHRONIC KIDNEY DISEASE, STAGE 3 (MODERATE) Status: Chronic Current Visit: Yes - Patient Summary/Data Consults: Consultations 03/30/19 07:00 PT Evaluation and Treatment [CONS] Routine Please Evaluate and Treat. PT Reason for Consult: Strengthening This query below is only for informational purposes and is not editable. Hospital Course: Jagjit presented to the emergency room with shaking chills, shortness of breath and myalgias. Workup in the emergency room suggested probable right lower lobe pneumonia with sepsis syndrome as well as atrial fibrillation with a rapid ventricular response. Chest x-ray was clear but examination consistent with a right lower lung pneumonia. Cultures were obtained and she received IV antibiotics in the emergency room. She received IV fluid boluses per the sepsis protocol. She was admitted to the hospital for management of the infection complicated by dysrhythmia. Heart rate did improve with IV fluid boluses and she did not require any sort of additional management for her paroxysmal atrial fibrillation. Antibiotics were initially started with ceftriaxone and azithromycin. Overnight following admission the patient converted to a sinus rhythm. She did have a fever both the day after and 2 days after hospital admission so we transitioned her to doxycycline and ceftriaxone. A repeat chest x-ray 2 days after admission revealed a right lower lung infiltrate and possibly some mild, atypical appearing bilateral lower lung infiltrates. Since that change we have not had any additional fevers. She was hypoxic in the emergency room but was able to be weaned off the oxygen very quickly. White blood cell count has been normal throughout the emergency room and hospital stay. She has not had a recurrence of her atrial fibrillation since converting to sinus rhythm the night after admission. Strength and appetite have been improving. Symptomatically she has been feeling better. Initial symptoms present at the time of admission included myalgias, headache, shortness of breath and weakness. All of these are doing much better on the day of discharge. The plan is for 5 and have additional days of antibiotic therapy with doxycycline. She will be following up with her primary care next week. - Patient Instructions Diet: Regular Diet as Tolerated (Gluten Free) Activity: As Tolerated Showering/Bathing: May Shower Notify Provider of: Fever, Increased Pain, Nausea and/or Vomiting Other/Special Instructions: 1. You were in the hospital for management of a right lower lobe pneumonia. We did not determine the causative bacteria but your condition has been improving with antibiotic therapy. I would recommend that you continue to take the doxycycline. Please take 100 mg twice daily for 5- 1/2 more days. Your first dose outside of the hospital will be due maikel. 2. Continue your usual medications as previously prescribed. 3. Follow up with Dr. Fowler in approximately one week or sooner if symptoms get worse or do not continue to improve - Discharge Plan *PRESCRIPTION DRUG MONITORING PROGRAM REVIEWED*: Not Applicable *COPY OF PRESCRIPTION DRUG MONITORING REPORT IN PATIENT NIKOS: Not Applicable Prescriptions/Med Rec: Doxycycline [Vibramycin] 100 mg PO BID #11 cap Home Medications: Home Meds Aspirin [Halfprin] 81 mg PO DAILY 02/22/19 [History] Cyanocobalamin (Vitamin B-12) [Vitamin B-12] 1,000 mcg PO DAILY 02/22/19 [ History] Isosorbide Mononitrate [Imdur] 30 mg PO DAILY 02/22/19 [History] Lutein 20 mg PO BID 02/22/19 [History] Metoprolol Succinate [Toprol XL] 25 mg PO DAILY 02/22/19 [History] Nitroglycerin [Nitrostat] 0.4 mg SL ASDIRECTED PRN 02/22/19 [History] Pregabalin [Lyrica] 75 mg PO DAILY 02/22/19 [History] Torsemide 10 mg PO BID 02/22/19 [History] Doxycycline [Vibramycin] 100 mg PO BID #11 cap 04/01/19 [Rx] Oxygen Therapy Mode: Room Air Patient Handouts: Doxycycline tablets or capsules, Community-Acquired Pneumonia , Adult Referrals: Aliza Fwoler MD [Primary Care Provider] - (1 week - f/u hospital stay for pneumonia) - Discharge Summary/Plan Comment DC Time >30 min.: No - Patient Data Vitals - Most Recent: Last Vital Signs Temp 37.1 C 04/01/19 07:19 Pulse 60 04/01/19 08:33 Resp 14 04/01/19 07:19 BP 108/47 L 04/01/19 08:33 Pulse Ox 98 04/01/19 07:19 Weight - Most Recent: 71.214 kg I&O - Last 24 hours: Intake & Output 03/31/19 04/01/19 04/01/19 22:59 06:59 14:59 Intake Total 2000 Output Total 950 750 300 Balance 1050 -750 -300 Lab Results - Last 24 hrs: Laboratory Results - last 24 hr 04/01/19 04/01/19 Range/Units 05:40 05:40 WBC 6.7 (4.5-11.0) K/uL RBC 3.55 (3.30-5.50) M/uL Hgb 10.5 L (12.0-15.0) g/dL Hct 32.2 L (36.0-48.0) % MCV 91 (80-98) fL MCH 30 (27-31) pg MCHC 33 (32-36) % Plt Count 155 (150-400) K/uL Sodium 138 L (140-148) mmol/L Potassium 4.0 (3.6-5.2) mmol/L Chloride 107 (100-108) mmol/L Carbon Dioxide 22 (21-32) mmol/L Anion Gap 13.0 (5.0-14.0) mmol/L BUN 15 (7-18) mg/dL Creatinine 1.1 H (0.6-1.0) mg/dL Est Cr Clr Drug Dosing 34.05 mL/min Estimated GFR (MDRD) 48 L (>60) Glucose 109 H (74-106) mg/dL Calcium 8.4 L (8.5-10.1) mg/dL CECILIO Results - Last 24 hrs: Microbiology 03/29/19 16:51 Urine Culture - Final Urine, Clean Catch MIXED POSITIVE CHU DAY 2 03/31/19 03:35 Aerobic Blood Culture - Preliminary Blood - Arm, Left NO GROWTH AFTER 1 DAY Anaerobic Blood Culture - Preliminary NO GROWTH AFTER 1 DAY 03/31/19 03:40 Aerobic Blood Culture - Preliminary Blood - Arm, Right NO GROWTH AFTER 1 DAY Anaerobic Blood Culture - Preliminary NO GROWTH AFTER 1 DAY 03/29/19 16:01 Aerobic Blood Culture - Preliminary Blood - Arm, Right NO GROWTH AFTER 2 DAYS Anaerobic Blood Culture - Preliminary NO GROWTH AFTER 2 DAYS 03/29/19 16:00 Aerobic Blood Culture - Preliminary Blood - Venous - Iv Start NO GROWTH AFTER 2 DAYS Anaerobic Blood Culture - Preliminary NO GROWTH AFTER 2 DAYS Med Orders - Current: Current Medications Acetaminophen (Tylenol) 650 mg PO Q4H PRN PRN Reason: Pain (Mild 1-3)/fever Last Admin: 03/31/19 16:52 Dose: 650 mg Albuterol (Proventil Neb Soln) 2.5 mg NEB Q4H PRN PRN Reason: Shortness Of Breath/wheezing Aspirin (Halfprin) 81 mg PO DAILY [facility] Last Admin: 04/01/19 08:32 Dose: 81 mg Benzonatate (Tessalon Perles) 100 mg PO TID PRN PRN Reason: Cough Cefdinir (Omnicef) 300 mg PO BID [facility] Last Admin: 04/01/19 08:32 Dose: 300 mg Cyanocobalamin (Vitamin B12) 1,000 mcg PO DAILY [facility] Last Admin: 04/01/19 08:33 Dose: 1,000 mcg Diphenhydramine HCl (Benadryl) 25 mg IVPUSH Q4H PRN PRN Reason: moderate or severe itching Diphenhydramine HCl (Benadryl) 25 mg PO Q4H PRN PRN Reason: mild itching Doxycycline Hyclate (Vibramycin) 100 mg PO BID [facility] Last Admin: 04/01/19 08:33 Dose: 100 mg Enoxaparin Sodium (Lovenox) 40 mg SUBCUT DAILY [facility] Last Admin: 04/01/19 08:35 Dose: 40 mg Guaifenesin/Dextromethorphan (Robitussin Dm) 10 ml PO Q4H PRN PRN Reason: Cough Lactobacillus Rhamnosus (Culturelle) 1 cap PO BID [facility] Last Admin: 04/01/19 08:32 Dose: 1 cap Magnesium Hydroxide (Milk Of Magnesia) 30 ml PO Q12H PRN PRN Reason: Constipation Melatonin (Melatonin) 9 mg PO BEDTIME PRN PRN Reason: Sleep Metoprolol Succinate (Toprol Xl) 25 mg PO DAILY [facility] Last Admin: 04/01/19 08:33 Dose: 25 mg Lutein 20 Mg Ptom* (*) 20 mg PO BID [facility] Last Admin: 04/01/19 08:28 Dose: Not Given Ondansetron HCl (Zofran Odt) 4 mg PO Q6H PRN PRN Reason: Nausea able to take PO Last Admin: 03/29/19 21:58 Dose: 4 mg Ondansetron HCl (Zofran) 4 mg IV Q6H PRN PRN Reason: Nausea/Vomiting Pregabalin (Lyrica) 75 mg PO DAILY [facility] Last Admin: 04/01/19 08:34 Dose: 75 mg Senna/Docusate Sodium (Senna Plus) 1 tab PO BID PRN PRN Reason: Constipation Discontinued Medications Acetaminophen (Tylenol) 650 mg PO NOW ONE Stop: 03/29/19 16:02 Last Admin: 03/29/19 16:10 Dose: 650 mg Azithromycin (Zithromax) 500 mg PO Q24H [facility] Last Admin: 03/30/19 17:43 Dose: 500 mg Lactated Ringer's (Ringers, Lactated) 1,000 mls @ 999 mls/hr IV ASDIRECTED [facility] Last Admin: 03/29/19 16:05 Dose: 999 mls/hr Piperacillin Sod/Tazobactam (Sod 4.5 gm/ Sodium Chloride) 100 mls @ 100 mls/hr IV ONETIME ONE Stop: 03/29/19 17:01 Last Admin: 03/29/19 16:14 Dose: 100 mls/hr Lactated Ringer's (Ringers, Lactated) 1,000 mls @ 999 mls/hr IV BOLUS ONE Stop: 03/29/19 18:08 Last Admin: 03/29/19 17:11 Dose: 999 mls/hr Potassium Chloride/Sodium Chloride (Normal Saline With 20 Meq Kcl) 1,000 mls @ 125 mls/hr IV ASDIRECTED [facility] Last Admin: 03/30/19 05:09 Dose: 125 mls/hr Sodium Chloride (Normal Saline) 500 mls @ 500 mls/hr IV ASDIRECTED [facility] Stop: 03/29/19 19:16 Last Admin: 03/29/19 18:39 Dose: 500 mls/hr Azithromycin 500 mg/ Sodium (Chloride) 250 mls @ 250 mls/hr IV ONETIME ONE Stop: 03/29/19 19:21 Last Admin: 03/29/19 18:40 Dose: 250 mls/hr Ceftriaxone Sodium 2 gm/ (Sodium Chloride) 50 mls @ 100 mls/hr IV Q24H [facility] Last Admin: 03/31/19 18:20 Dose: Not Given Doxycycline Hyclate 100 mg/ (Sodium Chloride) 100 mls @ 100 mls/hr IV Q12H [facility] Last Admin: 03/31/19 11:04 Dose: 100 mls/hr Ondansetron HCl (Zofran) 4 mg IVPUSH ONETIME ONE Stop: 03/29/19 16:03 Last Admin: 03/29/19 16:08 Dose: 4 mg - Exam Quality Assessment: Denies: Supplemental Oxygen General: Reports: Alert, Oriented, Cooperative, No Acute Distress Lungs: Reports: Clear to Auscultation, Normal Respiratory Effort Cardiovascular: Reports: Regular Rate, Regular Rhythm GI/Abdominal Exam: Soft, No Distention Extremities: No Pedal Edema Psy/Mental Status: Reports: Alert, Normal Affect
== END 2019-04-01 14:52 | disposition home or self-care (01) | DRG 871 ==
LOC: JP.ED 15:37 → JP.MS 17:50
PROVIDERS: ADMIT Internal Medicine; ATTEND Internal Medicine
DX: A41.9 Sepsis, unspecified organism (principal); J18.9 Pneumonia, unspecified organism; N17.9 Acute kidney failure, unspecified; I11.0 Hypertensive heart disease with heart failure; J96.01 Acute respiratory failure with hypoxia; I48.91 Unspecified atrial fibrillation; I13.0 Hypertensive heart and chronic kidney disease with heart failure and stage 1 through stage 4 chronic kidney disease, or unspecified chronic kidney disease; R65.20 Severe sepsis without septic shock; N18.3 Chronic kidney disease, stage 3 (moderate); I48.0 Paroxysmal atrial fibrillation; Z91.041 Radiographic dye allergy status; Z91.02 Food additives allergy status; I50.9 Heart failure, unspecified; H54.7 Unspecified visual loss; G47.30 Sleep apnea, unspecified; G89.29 Other chronic pain; M54.9 Dorsalgia, unspecified; E53.8 Deficiency of other specified B group vitamins; G62.9 Polyneuropathy, unspecified; Z79.82 Long term (current) use of aspirin; Z90.49 Acquired absence of other specified parts of digestive tract; Z90.89 Acquired absence of other organs; Z90.710 Acquired absence of both cervix and uterus; Z98.49 Cataract extraction status, unspecified eye; Z88.1 Allergy status to other antibiotic agents; Z88.2 Allergy status to sulfonamides; Z91.018 Allergy to other foods; Z88.8 Allergy status to other drugs, medicaments and biological substances; Z99.81 Dependence on supplemental oxygen; Z87.440 Personal history of urinary (tract) infections; Z79.899 Other long term (current) drug therapy
CPT/HCPCS: 36415; 71045; 80053; 81001; 83605; 83615; 84145; 84484; 85025; 86140; 87040 ×2; 87086; 96361; 96365; 96375; 99285 ×2; A9270; J2405; J2543; J7030; J7120 ×2; 71046; 80048; 83735; 85027; 94762; 97110-GP; 97162-GP; 97530-GP; 97535-GP; J0456; J0696; J1650; J3480; J3490; J7050

== ENCOUNTER 2021-01-01 18:33 | Emergency (ER) | payer MEDICARE, OTHER ==
--- NOTE | 2021-01-01 19:23 | EDM.PDOC ---
ED HPI GENERAL MEDICAL PROBLEM - General Chief Complaint: General Stated Complaint: MEDICAL [facility]IA [place] Time Seen by Provider: 01/01/21 19:21 Source of Information: Reports: Patient History Limitations: Reports: No Limitations - History of Present Illness INITIAL COMMENTS - FREE TEXT/NARRATIVE: pt lost her November 25 unexpectedly and she has not done well since that time. She is having problems remembering thing. She has no chest pain. She has low grade headaches. She is having vertigo. Onset: Gradual Duration: Day(s): Location: Reports: Generalized Associated Symptoms: Reports: Headaches, Loss of Appetite, Weakness - Related Data Allergies Allergy/AdvReac Type Severity Reaction Status Date / Time diatrizoate sodium Allergy Severe Anaphylactic Verified 01/01/21 18:45 Shock Iodinated Contrast Media Allergy Severe Anaphylactic Verified 01/01/21 18:45 Shock meropenem Allergy Unknown Other Verified 01/01/21 18:45 ropivacaine Allergy Unknown Other Verified 01/01/21 18:45 ciprofloxacin [From Cipro] Allergy Rash Verified 01/01/21 18:45 clavulanic acid Allergy Nausea Verified 01/01/21 18:45 [From Augmentin] gabapentin Allergy Confusion Verified 01/01/21 18:45 metformin Allergy Confusion Verified 01/01/21 18:45 pravastatin Allergy Rash Verified 01/01/21 18:45 rosuvastatin [From Crestor] Allergy Hives Verified 01/01/21 18:45 sulfamethoxazole Allergy Cannot Verified 01/01/21 18:45 [From Bactrim] Remember trimethoprim [From Bactrim] Allergy Cannot Verified 01/01/21 18:45 Remember amoxicillin [From Augmentin] AdvReac Nausea Verified 01/01/21 18:45 atorvastatin [From Lipitor] AdvReac Muscle Verified 01/01/21 18:45 Aches gluten AdvReac Diarrhea Verified 01/01/21 18:45 oats AdvReac Diarrhea Verified 01/01/21 18:45 [id number]-[id number] Reductase AdvReac Muscle Verified 01/01/21 18:45 Inhibitor Aches wheat bran AdvReac Diarrhea Verified 01/01/21 18:45 [From Senokot Wheat Bran] Home Meds: Home Meds Aspirin [Halfprin] 81 mg PO DAILY 02/22/19 [History] Cyanocobalamin (Vitamin B-12) [Vitamin B-12] 1,000 mcg PO DAILY 02/22/19 [History] Isosorbide Mononitrate [Imdur] 30 mg PO DAILY 02/22/19 [History] Lutein 20 mg PO BID 02/22/19 [History] Metoprolol Succinate [Toprol XL] 25 mg PO DAILY 02/22/19 [History] Nitroglycerin [Nitrostat] 0.4 mg SL ASDIRECTED PRN 02/22/19 [History] Pregabalin [Lyrica] 75 mg PO DAILY 02/22/19 [History] Apixaban [Eliquis] 5 mg PO BID 01/01/21 [History] Furosemide [Lasix] 20 mg PO DAILY 01/01/21 [History] Past Medical History HEENT History: Reports: Cataract, Hard of Hearing, Impaired Vision Cardiovascular History: Reports: Afib, Heart Failure, Hypertension Respiratory History: Reports: Pneumonia, Recurrent, Sleep Apnea Other Respiratory History: CPAP Gastrointestinal History: Reports: Celiac Disease Genitourinary History: Reports: Urinary Incontinence, UTI, Recurrent [employer] History: Reports: Musculoskeletal History: Reports: Back Pain, Chronic, Fracture Neurological History: Reports: Neuropathy, Peripheral, Seizure Endocrine/Metabolic History: Reports: Other (See Below) Other Endocrine/Metabolic History: borderline diabetic Hematologic History: Reports: B12 Deficiency Oncologic (Cancer) History: Reports: Colon, Other (See Below) Other Oncologic History: 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 Dermatologic History: Reports: None - Infectious Disease History Infectious Disease History: Reports: Measles, Mumps - Past Surgical History Head Surgeries/Procedures: Reports: None HEENT Surgical History: Reports: Adenoidectomy, Cataract Surgery, LASIK, Tonsillectomy Cardiovascular Surgical History: Reports: Other (See Below) Other Cardiovascular Surgeries/Procedures: stents Respiratory Surgical History: Reports: None GI Surgical History: Reports: Appendectomy, Cholecystectomy, Colonoscopy, Other (See Below) Other GI Surgeries/Procedures: colon resection Female Surgical History: Reports: Hysterectomy Endocrine Surgical History: Reports: None Neurological Surgical History: Reports: None Musculoskeletal Surgical History: Reports: Shoulder Surgery Other Musculoskeletal Surgeries/Procedures:: left Oncologic Surgical History: Reports: None Dermatological Surgical History: Reports: None Social & Family History - Family History Cardiac: Reports: CAD - Tobacco Use Tobacco Use Status *Q: Unknown Ever Used Tobacco - Caffeine Use Caffeine Use: Reports: None ED ROS GENERAL - Review of Systems Review Of Systems: See Below Constitutional: Reports: No Symptoms HEENT: Reports: No Symptoms Respiratory: Reports: No Symptoms Cardiovascular: Reports: No Symptoms Endocrine: Reports: No Symptoms GI/Abdominal: Reports: No Symptoms : Reports: No Symptoms Musculoskeletal: Reports: No Symptoms Skin: Reports: No Symptoms Neurological: Reports: Other (pt has been depressed and she feels like her memory is not as good. She is not interested in things. She is having difficult y eating. She has lost 11 lbs since her huiusband . ) Psychiatric: Reports: Depression ED EXAM, GENERAL - Physical Exam Exam: See Below Free Text/Narrative:: pt is alert but she does appearvery depressed. Exam Limited By: No Limitations General Appearance: Alert, Anxious, Other ( pupils are equal and reactive. ) Ears: Normal TMs Nose: Normal Inspection Throat/Mouth: Normal Inspection Head: Atraumatic Neck: Normal Inspection Respiratory/Chest: No Respiratory Distress Cardiovascular: Regular Rate, Rhythm GI/Abdominal: Soft, Non-Tender (Female) Exam: Deferred Rectal (Female) Exam: Deferred Back Exam: Normal Inspection Extremities: Normal Inspection Neurological: Alert, Oriented, Normal Cognition Psychiatric: Depressed Mood Course - Vital Signs Last Recorded V/S: Last Vital Signs Temp 35.9 C L 01/01/21 19:03 Pulse 65 01/01/21 19:03 Resp 12 01/01/21 20:48 BP 163/74 H 01/01/21 20:48 Pulse Ox 100 01/01/21 20:48 - Orders/Labs/Meds Labs: Laboratory Tests 01/01/21 01/01/21 01/01/21 Range/Units 19:41 19:45 20:01 WBC 8.6 (4.5-11.0) K/uL RBC 4.03 (3.30-5.50) M/uL Hgb 12.0 (12.0-15.0) g/dL Hct 36.2 (36.0-48.0) % MCV 90 (80-98) fL MCH 30 (27-31) pg MCHC 33 (32-36) % Plt Count 260 (150-400) K/uL Neut % (Auto) 41.9 (36-66) % Lymph % (Auto) 43.0 (24-44) % Kaufman % (Auto) 7.8 H (2-6) % Eos % (Auto) 6.7 H (2-4) % Baso % (Auto) 0.6 (0-1) % Sodium 143 (140-148) mmol/L Potassium 3.8 (3.6-5.2) mmol/L Chloride 105 (100-108) mmol/L Carbon Dioxide 27 (21-32) mmol/L Anion Gap 11.1 (5.0-14.0) mmol/L BUN 22 H (7-18) mg/dL Creatinine 1.2 H (0.6-1.0) mg/dL Est Cr Clr Drug Dosing 30.67 mL/min Estimated GFR (MDRD) 43 L (>60) Glucose 108 H (74-106) mg/dL Calcium 8.8 (8.5-10.1) mg/dL Total Bilirubin 0.3 (0.2-1.0) mg/dL AST 17 (15-37) U/L ALT 13 (12-78) U/L Alkaline Phosphatase 71 (46-116) U/L Total Protein 7.7 (6.4-8.2) g/dL Albumin 3.3 L (3.4-5.0) g/dL Globulin 4.4 H (2.3-3.5) g/dL Albumin/Globulin Ratio 0.8 L (1.2-2.2) Urine Color Yellow (YELLOW) Urine Appearance Clear (CLEAR) Urine pH 7.0 (5.0-8.0) Ur Specific [place] 1.010 (1.008-1.030) Urine Protein Negative (NEGATIVE) mg/dL Urine Glucose (UA) Negative (NEGATIVE) mg/dL Urine Ketones Negative (NEGATIVE) mg/dL Urine Occult Blood Negative (NEGATIVE) Urine Nitrite Negative (NEGATIVE) Urine Bilirubin Negative (NEGATIVE) Urine Urobilinogen 0.2 (0.2-1.0) EU/dL Ur Leukocyte Esterase Negative (NEGATIVE) Urine RBC Not seen (0-5) Urine WBC Not seen (0-5) Ur Epithelial Cells Rare Amorphous Sediment Rare Urine Bacteria Not seen Urine Mucus Not seen - Re-Assessments/Exams Free Text/Narrative Re-Assessment/Exam: 01/01/21 21:22 pt will be refered to Living at home because she is very alone and needs help with some of her errands. She will be calling back with her meds that were given in [place]. Departure - Departure Time of Disposition: 21:12 Disposition: Home, Self-Care 01 Condition: Fair Clinical Impression: Depression, Grief reaction - Discharge Information Instructions: Complicated Grief Referrals: PCP,None [Primary Care Provider] - Forms: ED Department Discharge Care Plan Goals: referal to living at home, call back with meds were given by Dr Blunt in [place], try to get a good sleep pattern going. pt did call back with the meds she was given in [place]. She was given ativan 1 mg and this made her sleep all day she was advised to take a 1/2 tab at hs to see if she could have a better sleep pattern. She has zoforan and can use that for nausea. She has antivert an should use that at the onset of her episodes of vertigo. follow up with regular physian. Sepsis Event Note (ED) - Evaluation Sepsis Screening Result: No Definite Risk
--- NOTE | 2021-01-01 20:46 | CRLCT ---
For Patients: As a result of the Century Cures Act, medical imaging exams and procedure reports are released immediately into your electronic medical record. You may view this report before your referring provider. If you have questions, please contact your health care provider. INDICATION: Vertigo TECHNIQUE: CT Head without i.v. contrast. Coronal and sagittal reformats were obtained. COMPARISON: None FINDINGS: CSF space: Unremarkable for age. Brain: No evidence of mass, acute infarction or hemorrhage is seen. No mass-effect or midline shift is seen. Mild diffuse cortical atrophy is noted. The brain parenchyma is otherwise normal in appearance with preservation of the zarate-white matter junction. Calvarium: The visualized paranasal sinuses are well aerated. The mastoid air cells are clear. The visualized orbits are grossly unremarkable. The patient is status post prior bilateral cataract removal. The calvarium is unremarkable in appearance with no fractures identified. IMPRESSION: 1. No evidence of acute infarction, intracranial hemorrhage, or mass-effect seen. Please note that all CT scans at this facility use dose modulation, iterative reconstruction, and/or weight-based dosing when appropriate to reduce radiation dose to as low as reasonably achievable. Dictated by: Souleymane Moreno MD @ 01/01/2021 20:45:18 (Electronically Signed)
== END 2021-01-01 21:43 | disposition home or self-care (01) ==
LOC: JP.ED 18:33
DX: F32.9 Major depressive disorder, single episode, unspecified (principal); F43.20 Adjustment disorder, unspecified; I11.0 Hypertensive heart disease with heart failure; I50.9 Heart failure, unspecified; Z79.899 Other long term (current) drug therapy; Z88.0 Allergy status to penicillin; Z91.041 Radiographic dye allergy status; Z88.8 Allergy status to other drugs, medicaments and biological substances; Z88.1 Allergy status to other antibiotic agents; Z91.018 Allergy to other foods; Z91.048 Other nonmedicinal substance allergy status; Z88.5 Allergy status to narcotic agent; Z79.82 Long term (current) use of aspirin; Z79.01 Long term (current) use of anticoagulants
CPT/HCPCS: 36415; 70450; 80053; 81001; 85025; 99284-25

== ENCOUNTER 2021-12-17 10:59 | Emergency (ER) | payer MEDICARE, OTHER ==
[2021-12-17] MEDS ORDERED: Lidocaine 1% with EPINEPHrine 1:100,000 50 ML MDV INFILT ONE (11:35)
[2021-12-17] MEDS ORDERED: fentaNYL 50 MCG/ML SDV IVPUSH ONE (11:39)
== END 2021-12-17 14:30 | disposition home or self-care (01) ==
LOC: JP.ED 10:59
DX: S81.812A Laceration without foreign body, left lower leg, initial encounter (principal); S70.02XA Contusion of left hip, initial encounter; I11.0 Hypertensive heart disease with heart failure; I50.9 Heart failure, unspecified; Z90.49 Acquired absence of other specified parts of digestive tract; Z90.710 Acquired absence of both cervix and uterus; Z88.8 Allergy status to other drugs, medicaments and biological substances; Z91.041 Radiographic dye allergy status; Z88.1 Allergy status to other antibiotic agents; Z88.2 Allergy status to sulfonamides; Z91.018 Allergy to other foods; Z88.6 Allergy status to analgesic agent; Z88.0 Allergy status to penicillin; Z79.899 Other long term (current) drug therapy; Z79.82 Long term (current) use of aspirin; Z79.01 Long term (current) use of anticoagulants; W22.8XXA Striking against or struck by other objects, initial encounter
CPT/HCPCS: 12005; 73590; 99283; J3010; 12035; 99281

== ENCOUNTER 2023-02-13 07:47 | Day surgery (SDC) | payer MEDICARE ==
[2023-02-13] MEDS ORDERED: Propofol 200 MG/20 ML SDV ONE (08:41)
[2023-02-13] MEDS ORDERED: Dextrose 5%-Lactated Ringers 1,000 ML IV SCH (08:45)
== END 2023-02-13 13:10 | disposition home or self-care (01) ==
LOC: JP.SDS 07:47
PROVIDERS: ATTEND Surgery
DX: Z08 Encounter for follow-up examination after completed treatment for malignant neoplasm (principal); K57.30 Diverticulosis of large intestine without perforation or abscess without bleeding; K56.699 Other intestinal obstruction unspecified as to partial versus complete obstruction; K64.9 Unspecified hemorrhoids; I25.10 Atherosclerotic heart disease of native coronary artery without angina pectoris; I12.9 Hypertensive chronic kidney disease with stage 1 through stage 4 chronic kidney disease, or unspecified chronic kidney disease; E11.22 Type 2 diabetes mellitus with diabetic chronic kidney disease; N18.9 Chronic kidney disease, unspecified; D63.1 Anemia in chronic kidney disease; Z85.038 Personal history of other malignant neoplasm of large intestine; Z90.49 Acquired absence of other specified parts of digestive tract; Z98.0 Intestinal bypass and anastomosis status
CPT/HCPCS: 45378; J2704

== ENCOUNTER 2023-09-15 16:00 | Emergency (ER) | payer MEDICARE ==
[2023-09-15 16:54] LABS: BASOPHILS ABSOLUTE AUTO 0.05 K/uL (0.00-0.10); BASOPHILS PERCENT AUTO 0.6 % (0.1-1.3); EOSINOPHILS ABSOLUTE AUTO 0.15 K/uL (0.00-0.40); EOSINOPHILS PERCENT AUTO 1.8 % (0.0-5.4); IMMATURE GRAN PERCENT AUTO 0.2 % (0.0-0.7); LYMPHOCYTES ABSOLUTE AUTO 2.83 K/uL (0.8-3.3); LYMPHOCYTES PERCENT AUTO 33.5 % (11.4-47.7); MEAN CORPUSCULAR HEMOGLOBIN 30.1 pg (31.6-35.5); MEAN CORPUSCULAR HGB CONC 34.3 g/dL (31.6-35.5); MEAN CORPUSCULAR VOLUME 87.7 fL (81.4-99.0); MONOCYTES ABSOLUTE AUTO 0.87 K/uL (0.20-0.90); MONOCYTES PERCENT AUTO 10.3 % (3.3-12.6); NEUTROPHILS ABSOLUTE AUTO 4.52 K/uL (1.0-7.6); NEUTROPHILS PERCENT AUTO 53.6 % (40.0-78.1); PLATELET COUNT,PLT 220 K/uL (130-375); RED BLOOD CELL COUNT 3.99 M/uL (3.77-5.24); WHITE BLOOD CELL COUNT,WBC 8.4 K/uL (3.2-11.0)
[2023-09-15 16:55] LABS: IMMATURE GRAN ABSOLUTE AUTO 0.02 K/uL (0.00-0.23)
[2023-09-15 17:15] LABS: A/G RATIO 0.7 (1.2-2.2); ALANINE AMINOTRANSFERASE,ALT 10 U/L (12-78); ALBUMIN 3.3 g/dL (3.4-5.0); ALKALINE PHOSPHATASE 80 U/L (46-116); AMYLASE 49 U/L (25-115); ASPARTATE AMNIOTRANSFERASE,AST 17 U/L (15-37); BILIRUBIN TOTAL 0.5 mg/dL (0.2-1.0); BLOOD UREA NITROGEN,BUN 28 mg/dL (7-18); CALCIUM 9.3 mg/dL (8.5-10.1); CARBON DIOXIDE,CO2 24 mmol/L (21-32); CHLORIDE,CL 103 mmol/L (100-108); CREATININE 1.1 mg/dL (0.6-1.0); EST CRCL DRUG DOSING (CG) 33.03 mL/min; ESTIMATED GFR 49 mL/min (>60); GLUCOSE RANDOM 105 mg/dL (74-106); MAGNESIUM 2.1 mg/dL (1.8-2.4); POTASSIUM,K 4.3 mmol/L (3.6-5.2); PROTEIN TOTAL,TP 8.3 g/dL (6.4-8.2); SODIUM,NA 139 mmol/L (140-148)
[2023-09-15 17:16] LABS: ANION GAP 16.3 mmol/L (5.0-14.0); C-REACTIVE PROTEIN < 0.50 mg/dL (<0.50)
[2023-09-15 17:26] LABS: APPEARANCE,URINE TURBID (CLEAR); BILIRUBIN,URINE NEGATIVE (NEGATIVE); COLOR,URINE YELLOW (YELLOW); GLUCOSE,URINE NEGATIVE (NEGATIVE); KETONES,URINE NEGATIVE (NEGATIVE); LEUKOCYTE ESTERASE,URINE LARGE (NEGATIVE); NITRITE,URINE POSITIVE (NEGATIVE); OCCULT BLOOD,URINE MODERATE (NEGATIVE); PROTEIN,URINE 100 mg/dL (NEGATIVE); UROBILINOGEN,URINE 0.2 EU/dL (0.2-1.0)
[2023-09-15 17:31] LABS: AMORPHOUS SEDIMENT,URINE FEW; BACTERIA,URINE MANY; EPITHELIAL CELLS,URINE RARE; MUCUS,URINE NOT SEEN; WBC,URINE PACKED (0-5)
[2023-09-15] MEDS: Sodium Chloride 0.9% 1,000 ML IV ONE (17:35)
== END 2023-09-15 21:08 | disposition home or self-care (01) ==
LOC: JP.ED 16:00
DX: N30.01 Acute cystitis with hematuria (principal); I11.0 Hypertensive heart disease with heart failure; I50.9 Heart failure, unspecified; I48.91 Unspecified atrial fibrillation; Z88.8 Allergy status to other drugs, medicaments and biological substances; Z91.041 Radiographic dye allergy status; Z91.018 Allergy to other foods; Z88.6 Allergy status to analgesic agent; Z79.84 Long term (current) use of oral hypoglycemic drugs; Z79.899 Other long term (current) drug therapy; Z90.49 Acquired absence of other specified parts of digestive tract; Z90.710 Acquired absence of both cervix and uterus; Z79.01 Long term (current) use of anticoagulants
CPT/HCPCS: 36415; 74176; 80053; 81001; 82150; 83690; 83735; 85025; 86140; 87086; 96360; 99284; J7030; 87088; 87186

== ENCOUNTER 2023-12-05 15:52 | Emergency (ER) | payer MEDICARE ==
[2023-12-05 18:14] LABS: BASOPHILS ABSOLUTE AUTO 0.04 K/uL (0.00-0.10); BASOPHILS PERCENT AUTO 0.4 % (0.1-1.3); EOSINOPHILS ABSOLUTE AUTO 0.42 K/uL (0.00-0.40); EOSINOPHILS PERCENT AUTO 4.4 % (0.0-5.4); IMMATURE GRAN PERCENT AUTO 0.2 % (0.0-0.7); LYMPHOCYTES ABSOLUTE AUTO 2.89 K/uL (0.8-3.3); LYMPHOCYTES PERCENT AUTO 30.1 % (11.4-47.7); MEAN CORPUSCULAR HEMOGLOBIN 30.6 pg (31.6-35.5); MEAN CORPUSCULAR HGB CONC 34.4 g/dL (31.6-35.5); MEAN CORPUSCULAR VOLUME 89.1 fL (81.4-99.0); MONOCYTES ABSOLUTE AUTO 0.85 K/uL (0.20-0.90); MONOCYTES PERCENT AUTO 8.9 % (3.3-12.6); NEUTROPHILS ABSOLUTE AUTO 5.37 K/uL (1.0-7.6); PLATELET COUNT,PLT 205 K/uL (130-375); RED BLOOD CELL COUNT 3.59 M/uL (3.77-5.24); WHITE BLOOD CELL COUNT,WBC 9.6 K/uL (3.2-11.0)
[2023-12-05 18:16] LABS: IMMATURE GRAN ABSOLUTE AUTO 0.02 K/uL (0.00-0.23)
[2023-12-05 18:44] LABS: A/G RATIO 0.8 (1.2-2.2); ALANINE AMINOTRANSFERASE,ALT 11 U/L (12-78); ALBUMIN 3.3 g/dL (3.4-5.0); ALKALINE PHOSPHATASE 81 U/L (46-116); ANION GAP 8.6 mmol/L (5.0-14.0); ASPARTATE AMNIOTRANSFERASE,AST 16 U/L (15-37); BILIRUBIN TOTAL 0.4 mg/dL (0.2-1.0); BLOOD UREA NITROGEN,BUN 37 mg/dL (7-18); CALCIUM 8.5 mg/dL (8.5-10.1); CARBON DIOXIDE,CO2 27 mmol/L (21-32); CHLORIDE,CL 106 mmol/L (100-108); CREATININE 1.2 mg/dL (0.6-1.0); EST CRCL DRUG DOSING (CG) 27.84 mL/min; ESTIMATED GFR 44 mL/min (>60); GLUCOSE RANDOM 104 mg/dL (74-106); POTASSIUM,K 3.7 mmol/L (3.6-5.2); PROTEIN TOTAL,TP 7.5 g/dL (6.4-8.2); SODIUM,NA 142 mmol/L (140-148); TROPONIN I HIGH SENSITIVITY 9.6 pg/mL (<=60.3); TSH ULTRASENSITIVE 2.285 uIU/mL (0.358-3.740)
[2023-12-05 19:16] LABS: APPEARANCE,URINE CLEAR (CLEAR); BILIRUBIN,URINE NEGATIVE (NEGATIVE); COLOR,URINE YELLOW (YELLOW); GLUCOSE,URINE NEGATIVE (NEGATIVE); KETONES,URINE NEGATIVE (NEGATIVE); LEUKOCYTE ESTERASE,URINE NEGATIVE (NEGATIVE); NITRITE,URINE NEGATIVE (NEGATIVE); OCCULT BLOOD,URINE NEGATIVE (NEGATIVE); PROTEIN,URINE NEGATIVE (NEGATIVE); UROBILINOGEN,URINE 0.2 EU/dL (0.2-1.0)
[2023-12-05 19:24] LABS: AMORPHOUS SEDIMENT,URINE NOT SEEN; BACTERIA,URINE RARE; EPITHELIAL CELLS,URINE RARE; MUCUS,URINE RARE; RBC,URINE NOT SEEN (0-5); WBC,URINE 0-5 (0-5)
== END 2023-12-05 19:43 | disposition home or self-care (01) ==
LOC: JP.ED 15:52
DX: R53.83 Other fatigue (principal); I11.0 Hypertensive heart disease with heart failure; I50.9 Heart failure, unspecified; Z90.49 Acquired absence of other specified parts of digestive tract; Z90.710 Acquired absence of both cervix and uterus; Z79.899 Other long term (current) drug therapy; Z91.018 Allergy to other foods; Z88.0 Allergy status to penicillin; Z88.8 Allergy status to other drugs, medicaments and biological substances; Z88.2 Allergy status to sulfonamides
CPT/HCPCS: 36415; 71045; 80053; 81001; 84443; 84484; 85025; 99285

== ENCOUNTER 2024-10-29 17:32 | Emergency (ER) | payer MEDICARE ==
[2024-10-29 18:17] LABS: BASOPHILS ABSOLUTE AUTO 0.05 K/uL (0.00-0.10); BASOPHILS PERCENT AUTO 0.4 % (0.1-1.3); EOSINOPHILS ABSOLUTE AUTO 0.54 K/uL (0.00-0.40); EOSINOPHILS PERCENT AUTO 4.2 % (0.0-5.4); HEMATOCRIT 38.2 % (34.3-46.0); IMMATURE GRAN ABSOLUTE AUTO 0.05 K/uL (0.00-0.23); IMMATURE GRAN PERCENT AUTO 0.4 % (0.0-0.7); LYMPHOCYTES ABSOLUTE AUTO 3.85 K/uL (0.8-3.3); LYMPHOCYTES PERCENT AUTO 29.6 % (11.4-47.7); MEAN CORPUSCULAR HEMOGLOBIN 30.5 pg (31.6-35.5); MEAN CORPUSCULAR VOLUME 89.7 fL (81.4-99.0); MONOCYTES ABSOLUTE AUTO 1.01 K/uL (0.20-0.90); MONOCYTES PERCENT AUTO 7.8 % (3.3-12.6); NEUTROPHILS ABSOLUTE AUTO 7.49 K/uL (1.0-7.6); NEUTROPHILS PERCENT AUTO 57.6 % (40.0-78.1); PLATELET COUNT,PLT 198 K/uL (130-375); RED BLOOD CELL COUNT 4.26 M/uL (3.77-5.24)
[2024-10-29 18:25] LABS: ANION GAP 11.4 mmol/L (5.0-14.0); BLOOD UREA NITROGEN,BUN 31 mg/dL (7-18); CALCIUM 9.4 mg/dL (8.5-10.1); CARBON DIOXIDE,CO2 25 mmol/L (21-32); CHLORIDE,CL 104 mmol/L (100-108); CREATININE 1.2 mg/dL (0.6-1.0); ESTIMATED GFR 44 mL/min (>60); GLUCOSE RANDOM 133 mg/dL (74-106); POTASSIUM,K 3.7 mmol/L (3.6-5.2); SODIUM,NA 140 mmol/L (140-148)
[2024-10-29] MEDS: Sodium Chloride 0.9% 1,000 ML IV SCH (18:50)
[2024-10-29] MEDS: Diltiazem 25 MG/5 ML SDV IVPUSH ONE (18:58)
[2024-10-29] MEDS: Metoprolol Tartrate 5 MG/5 ML SDV IVPUSH ONE (20:37)
== END 2024-10-29 22:00 | disposition home or self-care (01) ==
LOC: JP.ED 17:32
DX: I48.91 Unspecified atrial fibrillation (principal); I11.0 Hypertensive heart disease with heart failure; I50.9 Heart failure, unspecified; Z79.899 Other long term (current) drug therapy; Z91.018 Allergy to other foods; Z79.01 Long term (current) use of anticoagulants; Z88.2 Allergy status to sulfonamides; Z88.8 Allergy status to other drugs, medicaments and biological substances; Z88.5 Allergy status to narcotic agent; Z91.048 Other nonmedicinal substance allergy status; Z91.041 Radiographic dye allergy status
CPT/HCPCS: 36415; 80048; 84484; 85025; 93005; 93010; 96361; 96374; 96375; 99284; 99285; J3490; J7030

== ENCOUNTER 2025-02-04 16:47 | Emergency (ER) | payer MEDICARE, OTHER ==
[2025-02-04 17:27] LABS: BASOPHILS ABSOLUTE AUTO 0.06 K/uL (0.00-0.10); BASOPHILS PERCENT AUTO 0.6 % (0.1-1.3); EOSINOPHILS ABSOLUTE AUTO 0.47 K/uL (0.00-0.40); EOSINOPHILS PERCENT AUTO 4.4 % (0.0-5.4); IMMATURE GRAN ABSOLUTE AUTO 0.03 K/uL (0.00-0.23); IMMATURE GRAN PERCENT AUTO 0.3 % (0.0-0.7); LYMPHOCYTES ABSOLUTE AUTO 2.82 K/uL (0.8-3.3); LYMPHOCYTES PERCENT AUTO 26.3 % (11.4-47.7); MONOCYTES ABSOLUTE AUTO 0.84 K/uL (0.20-0.90); MONOCYTES PERCENT AUTO 7.8 % (3.3-12.6); NEUTROPHILS ABSOLUTE AUTO 6.51 K/uL (1.0-7.6); NEUTROPHILS PERCENT AUTO 60.6 % (40.0-78.1); PLATELET COUNT,PLT 268 K/uL (130-375); RED BLOOD CELL COUNT 4.02 M/uL (3.77-5.24); WHITE BLOOD CELL COUNT,WBC 10.7 K/uL (3.2-11.0)
[2025-02-04 17:33] LABS: A/G RATIO 0.8 (1.2-2.2); ALANINE AMINOTRANSFERASE,ALT 11 U/L (12-78); ASPARTATE AMNIOTRANSFERASE,AST 15 U/L (15-37); BILIRUBIN TOTAL 0.3 mg/dL (0.2-1.0); BLOOD UREA NITROGEN,BUN 23 mg/dL (7-18); CARBON DIOXIDE,CO2 28 mmol/L (21-32); CHLORIDE,CL 103 mmol/L (100-108); CREATININE 0.9 mg/dL (0.6-1.0); EST CRCL DRUG DOSING (CG) 36.43 mL/min; ESTIMATED GFR 62 mL/min (>60); GLUCOSE RANDOM 163 mg/dL (74-106); POTASSIUM,K 3.5 mmol/L (3.6-5.2); PROTEIN TOTAL,TP 7.9 g/dL (6.4-8.2); SODIUM,NA 139 mmol/L (140-148); TROPONIN I HIGH SENSITIVITY 14.9 pg/mL (<=60.3)
[2025-02-04] MEDS: Diltiazem 25 MG/5 ML SDV IVPUSH ONE (17:34)
[2025-02-04] MEDS: Potassium Chloride 20 MEQ Tab.ER PO ONE (18:11)
[2025-02-04] MEDS: Diltiazem 100 MG in Sodium Chloride 0.9% 100 ML IV SCH (18:15)
[2025-02-04] MEDS: Diltiazem 120 MG Cap.CD PO ONE (21:11)
[2025-02-04] MEDS ORDERED: Naloxone 0.4 MG/ML SDV IVPUSH PRN (21:23)
== END 2025-02-05 00:40 | disposition home or self-care (01) ==
LOC: JP.ED 16:47
DX: I48.91 Unspecified atrial fibrillation (principal); I11.0 Hypertensive heart disease with heart failure; I50.9 Heart failure, unspecified; Z90.49 Acquired absence of other specified parts of digestive tract; Z79.899 Other long term (current) drug therapy; Z91.041 Radiographic dye allergy status; Z88.8 Allergy status to other drugs, medicaments and biological substances; Z88.1 Allergy status to other antibiotic agents; Z88.0 Allergy status to penicillin; Z88.2 Allergy status to sulfonamides; Z91.018 Allergy to other foods; Z91.048 Other nonmedicinal substance allergy status; Z79.01 Long term (current) use of anticoagulants
CPT/HCPCS: 36415; 80053; 83735; 84484; 85025; 96365; 96366; 96376; 99284; 99284-25; A9270-GY; J1163; J3490; J7030